=== PATIENT | female | born 1950 | race Caucasian/White ===

== ENCOUNTER 2021-02-14 11:24 | Inpatient (IN) ==
[2021-02-14] MEDS ORDERED: SODIUM CHLORIDE 0.9% 1000ML 1,000 ML IV STA (12:07)
[2021-02-14] MEDS ORDERED: ONDANSETRON INJ 2 MG/ML 2 ML VIAL IV STA (12:07)
[2021-02-14 12:15] LABS: Basophils # (auto) 0.04 K/uL (0-0.2); Basophils % (auto) 0.4 %; Eosinophils # (auto) 0.06 K/uL (0-0.5); Eosinophils % (auto) 0.6 %; Hematocrit (blood only) 42.4 % (37-47); Immature Granulocytes # (auto) 0.01 K/uL (0.00-0.02); Immature Granulocytes % (auto) 0.1 %; Lymphocytes # (auto) 1.37 K/uL (1.2-3.4); Lymphocytes % (auto) 14.3 %; Mean Corpuscular Hemoglobin 31.6 pg (25-34); Mean Corpuscular Volume 95.7 fL (80-100); Mean Platelet Volume 10.6 fL (7.4-10.4); Monocytes # (auto) 0.64 K/uL (0.11-0.59); Monocytes % (auto) 6.7 %; Neutrophils # (auto) 7.45 K/uL (1.4-6.5); Neutrophils % (auto) 77.9 %; Platelet Count 275 K/uL (130-400); RDW Coefficient of Variation 13.3 % (11.5-14.5); RDW Standard Deviation 46.6 fL (36.4-46.3); Red Blood Count 4.43 M/uL (4.2-5.4); White Blood Count 9.57 K/uL (4.8-10.8)
--- NOTE | 2021-02-14 12:26 | Emergency Department Note ---
Impression & Plan Vomiting ED Provider Note INFORMANT: Patient, nursing notes ED PROVIDER(S): Hemant Nix MD CHIEF COMPLAINT: Vomiting PLAN: Disposition: Admitted Condition: Good Outpatient prescription management: none Referral: None MEDICAL DECISION MAKING: Patient presented because of reports of vomiting. The patient is a very poor historian due to her dementia. She had work-up initiated. Her CBC and chemistry panel were unremarkable. ECG was normal. The patient underwent CT imaging of the abdomen pelvis and this was concerning for cystitis. She had dilated bowel without signs of obstruction. There was impaction present. Kidney stones were present. There were L1-L4 compression fractures. The patient denied any pain. Her urinalysis was concerning for infection. The patient was given IV Rocephin. Given the vomiting and her dementia coupled with the CT findings she will need further management in the hospital. Consultation was made with the [facility]. Patient was evaluated in the ER admitted for further management. Triage Nursing notes reviewed and agree them. Vital Signs: reviewed and remarkable for no significant abnormalities Differential diagnosis: Etiologies such as gastroenteritis, food borne illness, infections, appendicitis, diverticulitis, inflammatory bowel disease, GI bleed, biliary pathology, food bolus, as well as others were entertained. Diagnostics interpreted by me: ECG: Rate: 75 Rhythm:Normal sinus [place]:Normal QRS:Normal ST segements:No elevation or depression Other:No PACs or PVCs Cardiac Monitoring: Cardiac monitoring ordered by me: The patient was placed on continuous cardiac monitoring and observed. It revealed a normal sinus rhythm at 75 beats per minute without ectopy or evidence of dysrhythmia. Imaging studies: CT imaging as above, I refer you to the EMR for further details. HPI: The patient is a 75 year old female who presents to the Emergency Room with vomiting. The patient is a resident at [facility] and had vomiting on Friday. It then stopped and then came back again today. The patient has dementia. She is unable to provide any details to the history. Patient is denying any pain. Patient does not note feeling nauseated and has no recollection of any vomiting. History is limited secondary to her dementia and severe memory impairment. ROS: See above HPI for pertinent positives & negatives. Limited secondary to dementia PAST MEDICAL HISTORY:See Below , dementia PAST SURGICAL HISTORY:See Below, FAMILY HISTORY:See Below SOCIAL HISTORY:See Below, resides at a nursing facility HOME MEDICATIONS:See Below ALLERGIES:See Below VITALS:See Below PHYSICAL EXAMINATION: GENERAL: Awake, alert, [id number], in no distress HENT: Normocephalic, atraumatic. Oropharynx unremarkable. Mild drooling present. EYES: Normal conjunctiva. Sclera non-icteric. NECK: Inspection normal. Non-tender. Supple. No nuchal rigidity. FROM. No masses. RESPIRATORY: Clear to auscultation. No wheezes. No rales. Normal respiratory effort. CARDIAC: Normal rate. Normal rhythm. No murmurs. No rubs. Extremities warm and well perfused. Pulses equal. No JVD. GI: Soft, non-distended. No tenderness to palpation. No rebound or guarding. No masses. RECTAL: Deferred. MUSCULOSKELETAL: Atraumatic. Chest examination reveals no tenderness. The back is symmetrical on inspection without obvious abnormality. There is no CVA tenderness to palpation. No joint edema. LOWER EXTREMITIES: Calves are equal size bilaterally and non-tender. No edema. No discoloration. NEURO: Normal sensorium. No sensory or motor deficits noted. SKIN: No rash or jaundice noted. Hemant Nix MD Past Med/Surg History Medical History (Updated 02/14/21 @ 17:01 by Gloria Zavala PA-C) Breast cancer Dementia Surgical History (Updated 02/14/21 @ 16:39 by Gloria Zavala PA-C) History of breast surgery History of hysterectomy Social History Smoking Status: Unknown if ever smoked Feels Safe at Home: Yes Allergies Allergies Allergy/AdvReac Type Severity Reaction Status Date / Time pollen extracts Allergy Unknown Unverified 02/14/21 14:53 Sulfa (Sulfonamide Allergy Unknown Unverified 02/14/21 14:53 Antibiotics) wheat Allergy Unknown Unverified 02/14/21 14:53 Home Meds Home Medications Medication Instructions Recorded Confirmed B-complex with vitamin C 1 tab PO DAILY 02/14/21 02/14/21 acetaminophen 325 mg tablet 325 mg PO QID PRN 02/14/21 02/14/21 calcium carbonate 600 mg (1,500 1 tab PO DAILY 02/14/21 02/14/21 mg)-vitamin D3 200 unit tablet docusate sodium 100 mg capsule 100 mg PO BID 02/14/21 02/14/21 multivitamin (Daily-Zen) 1 tab PO DAILY 02/14/21 02/14/21 rivastigmine 1 patch TRANSDERMAL DAILY 02/14/21 02/14/21 Results & Data (ED) Vital Signs Vital Signs - 24 hr 02/14/21 11:30 02/14/21 11:37 02/14/21 14:17 Temperature 36.7 C Temperature Source Oral Pulse Rate 92 H 83 74 Pulse Rate from SpO2 Sensor 87 74 Respiratory Rate 17 18 17 Blood Pressure 131/83 131/83 134/70 Blood Pressure Mean 99 99 91 Pulse Oximetry 98 97 98 Oxygen Delivery Method Room Air Sepsis Recent Fever Within 48 Hours No Sepsis New/Unexplained Change in Mental Status No Sepsis Action Taken by Nursing No Action Required 02/14/21 14:20 02/14/21 14:30 02/14/21 15:00 Temperature Temperature Source Pulse Rate 73 98 H Pulse Rate from SpO2 Sensor 73 99 H Respiratory Rate 17 16 Blood Pressure 128/61 128/63 Blood Pressure Mean 83 84 Pulse Oximetry 97 98 100 Oxygen Delivery Method Room Air Sepsis Recent Fever Within 48 Hours Sepsis New/Unexplained Change in Mental Status Sepsis Action Taken by Nursing 02/14/21 15:31 02/14/21 16:00 02/14/21 16:30 Temperature Temperature Source Pulse Rate 93 H 107 H 79 Pulse Rate from SpO2 Sensor 96 H Respiratory Rate 15 24 14 Blood Pressure 157/74 H 146/85 H 138/66 Blood Pressure Mean 101 105 90 Pulse Oximetry 98 Oxygen Delivery Method Sepsis Recent Fever Within 48 Hours Sepsis New/Unexplained Change in Mental Status Sepsis Action Taken by Nursing Laboratory Data Result diagrams: 02/14/21 11:40 02/14/21 11:40 Lab Results 02/14/21 02/14/21 02/14/21 Range/Units 11:40 11:40 15:00 WBC 9.57 (4.8-10.8) K/uL RBC 4.43 (4.2-5.4) M/uL Hgb 14.0 (12.0-16.0) g/dL Hct 42.4 (37-47) % MCV 95.7 (80-100) fL MCH 31.6 (25-34) pg MCHC 33.0 (32-36) g/dL RDW Std Deviation 46.6 H (36.4-46.3) fL RDW Coeff of Gayle 13.3 (11.5-14.5) % Plt Count 275 (130-400) K/uL MPV 10.6 H (7.4-10.4) fL Immature Gran % (Auto) 0.1 % Neut % (Auto) 77.9 % Lymph % (Auto) 14.3 % Towns % (Auto) 6.7 % Eos % (Auto) 0.6 % Baso % (Auto) 0.4 % Neut # (Auto) 7.45 H (1.4-6.5) K/uL Lymph # (Auto) 1.37 (1.2-3.4) K/uL Towns # (Auto) 0.64 H (0.11-0.59) K/uL Eos # (Auto) 0.06 (0-0.5) K/uL Baso # (Auto) 0.04 (0-0.2) K/uL Immature Gran # (Auto) 0.01 (0.00-0.02) K/uL Sodium 139 (136-145) mmol/L Potassium 3.8 (3.5-5.1) mmol/L Chloride 106 (98-107) mmol/L Carbon Dioxide 30 (21-32) mmol/L Anion Gap 3.0 (3-11) BUN 19 H (7-18) mg/dl Creatinine 0.59 L (0.6-1.2) mg/dl Est Cr Clr Drug Dosing Not Reportable Est GFR ( Amer) 106.9 ml/min Est GFR (Non-Af Amer) 92.2 ml/min BUN/Creatinine Ratio 31.8 H (10-20) Glucose 94 (70-99) mg/dl Calcium 9.3 (8.5-10.1) mg/dl Total Bilirubin 0.3 (0.2-1) mg/dl AST 16 (15-37) U/L ALT 19 (12-78) U/L Alkaline Phosphatase 90 (45-117) U/L Troponin I < 0.015 (0-0.045) ng/ml Total Protein 7.7 (6.4-8.2) gm/dl Albumin 3.7 (3.4-5.0) gm/dl Globulin 4.0 (2.5-4.0) gm/dl Albumin/Globulin Ratio 0.9 (0.9-2) Lipase 157 (73-393) U/L Urine Color Dark Yellow Urine Appearance Turbid A (Clear) Urine pH 7.5 (4.5-7.5) Ur Specific [place] 1.016 (1.000-1.030) Urine Protein Negative (Negative) Urine Glucose (UA) Negative (Negative) Urine Ketones 1+ H (Negative) Urine Blood Negative (Negative) Urine Nitrite Negative (Negative) Urine Bilirubin Negative (Negative) Urine Urobilinogen Negative (Negative) Ur Leukocyte Esterase 2+ H (Negative) Urine WBC (Auto) 10-30 H (0-5) /hpf Urine RBC (Auto) 0-4 (0-4) /hpf U Hyaline Cast (Auto) 0 (0-5) /lpf U Epithel Cells (Auto) >30 H (0-5) /lpf Urine Bacteria (Auto) Negative (Negative) Amorphous Sediment Present A (None Prsent) COVID-19 Eval Order SARS-CoV-2 (PCR) (Negative) 02/14/21 02/14/21 Range/Units 15:45 15:45 WBC (4.8-10.8) K/uL RBC (4.2-5.4) M/uL Hgb (12.0-16.0) g/dL Hct (37-47) % MCV (80-100) fL MCH (25-34) pg MCHC (32-36) g/dL RDW Std Deviation (36.4-46.3) fL RDW Coeff of Gayle (11.5-14.5) % Plt Count (130-400) K/uL MPV (7.4-10.4) fL Immature Gran % (Auto) % Neut % (Auto) % Lymph % (Auto) % Towns % (Auto) % Eos % (Auto) % Baso % (Auto) % Neut # (Auto) (1.4-6.5) K/uL Lymph # (Auto) (1.2-3.4) K/uL Towns # (Auto) (0.11-0.59) K/uL Eos # (Auto) (0-0.5) K/uL Baso # (Auto) (0-0.2) K/uL Immature Gran # (Auto) (0.00-0.02) K/uL Sodium (136-145) mmol/L Potassium (3.5-5.1) mmol/L Chloride (98-107) mmol/L Carbon Dioxide (21-32) mmol/L Anion Gap (3-11) BUN (7-18) mg/dl Creatinine (0.6-1.2) mg/dl Est Cr Clr Drug Dosing Est GFR ( Amer) ml/min Est GFR (Non-Af Amer) ml/min BUN/Creatinine Ratio (10-20) Glucose (70-99) mg/dl Calcium (8.5-10.1) mg/dl Total Bilirubin (0.2-1) mg/dl AST (15-37) U/L ALT (12-78) U/L Alkaline Phosphatase (45-117) U/L Troponin I (0-0.045) ng/ml Total Protein (6.4-8.2) gm/dl Albumin (3.4-5.0) gm/dl Globulin (2.5-4.0) gm/dl Albumin/Globulin Ratio (0.9-2) Lipase (73-393) U/L Urine Color Urine Appearance (Clear) Urine pH (4.5-7.5) Ur Specific [place] (1.000-1.030) Urine Protein (Negative) Urine Glucose (UA) (Negative) Urine Ketones (Negative) Urine Blood (Negative) Urine Nitrite (Negative) Urine Bilirubin (Negative) Urine Urobilinogen (Negative) Ur Leukocyte Esterase (Negative) Urine WBC (Auto) (0-5) /hpf Urine RBC (Auto) (0-4) /hpf U Hyaline Cast (Auto) (0-5) /lpf U Epithel Cells (Auto) (0-5) /lpf Urine Bacteria (Auto) (Negative) Amorphous Sediment (None Prsent) COVID-19 Eval Order Covid19 at [facility] SARS-CoV-2 (PCR) NEGATIVE (Negative) Administered Medications Discontinued Medications Sodium Chloride (Nss 1000ml) 1,000 mls @ 125 mls/hr IV .Q8H STA Stop: 02/14/21 20:06 Last Infusion: 02/14/21 19:30 Dose: 0 mls/hr Documented by: [id number] Admin: 02/14/21 14:15 Dose: 125 mls/hr Documented by: [id number] Ceftriaxone Sodium (Rocephin) 2,000 mg in 70 mls @ 140 mls/hr IV NOW STA Stop: 02/14/21 16:18 Last Infusion: 02/14/21 17:47 Dose: 0 mls/hr Documented by: [id number] Admin: 02/14/21 17:11 Dose: 140 mls/hr Documented by: [id number] Ondansetron HCl (Ondansetron Inj 2 Mg/Ml 2 Ml Vial) 4 mg IV NOW STA Stop: 02/14/21 12:08 Last Admin: 02/14/21 13:02 Dose: 4 mg Documented by: [id number] Imaging Data Radiologist's Impression: Abdomen/Pelvis CT 02/14/21 12:07 CT SCAN OF THE ABDOMEN AND PELVIS WITHOUT CONTRAST CLINICAL HISTORY: vomiting COMPARISON STUDY: No previous studies for comparison. TECHNIQUE: CT scan of the abdomen and pelvis was performed from the lung bases to the proximal femurs. Images are reviewed in the axial, sagittal, and coronal planes. IV contrast was not administered for this examination. A dose lowering technique was utilized adhering to the principles of ALARA. CT DOSE: 268.09 mGy.cm FINDINGS: Lower chest: Minimal atelectasis at lung bases. Evaluation is limited due to motion artifact. Liver: The unenhanced liver is normal in size, contour, and attenuation. There is no intrahepatic biliary ductal dilatation. Gallbladder: Is not seen, probably surgically absent. Spleen: Normal in size and attenuation. Pancreas: Is atrophic. Pancreatic head and uncinate process are poorly seen. Adrenal glands: Unremarkable. Kidneys: The unenhanced kidneys are normal in size without hydronephrosis. There is no contour deforming renal mass lesion. Nonobstructive calculus are seen within bilateral renal pelvises, largest is seen on the right and measured 4 mm in size.. Bowel: Moderate hiatal hernia. Loops of small and large bowel are nondilated. Evaluation is limited due to lack of IV contrast and motion artifact as well as very little amount of intra-abdominal fat. Appendix is not well seen. Moderate amount of stool is seen within colonic loops. Rectum is dilated measuring 6.8 cm in diameter and contain large amount of stool consistent with fecal impaction. Peritoneum: There is no intraperitoneal free air or abdominal ascites. There is possible mesenteric edema within lower abdomen/pelvis however evaluation is limited due to very little amount of intra-abdominal fat. Vasculature: Abdominal aorta is normal in caliber, tortuous with minimal calcifications within its distal aspect. Adenopathy: None. Pelvic viscera: Urinary bladder is fluid-filled with mild diffuse thickening of its wall which might be seen in cystitis. Uterus is not seen, could be surgically absent. Overall evaluation of the pelvis is limited due to beam hardening artifact from metallic orthopedic hardware within right and left femur. Skeletal structures: Diffuse osteopenia. Multilevel compression fracture deformity of the L1-L4, most prominent of the L3. Retropulsion of posterior fra ctured fragments are seen at the L1-L4 level, largest is measuring 8mm at the level of L3 and better visualized on sagittal reconstruction, image 285 out of 513. IMPRESSION: 1. Fecal impaction. 2. Nondilated loops of small and large bowel. Questionable minimal mesenteric edema however evaluation is limited due to very little amount of intra-abdominal fat. 3. Bilateral cholelithiasis without cholecystitis. 4. Mild diffuse thickening of urinary bladder wall which might be seen in cystitis. Please correlate this findings with results of urinalysis. 5. Moderate hiatal hernia. 6. Multilevel compression fracture deformities of lumbar spine, most severe at L3 level. Please see discussion above. 7. The rest of findings as detailed above. ACT 112: Negative or not required by law. The above report was generated using voice recognition software. It may contain grammatical, syntax or spelling errors. Electronically signed by: Angeline Bagley DO 02/14/2021 1:34 PM Discharge Plan Visit Data Chief Complaint: Vomiting Stated Complaint: VOMITING ED Provider: Hemant Nix Discharge Problem: Vomiting Patient Disposition: Admitted As Inpatient Discharge Instructions Interventions: ED Discharge Assessment Last Done: 02/14/21 19:21
[2021-02-14 12:41] LABS: Alanine Aminotransferase 19 U/L (12-78); Albumin Level 3.7 gm/dl (3.4-5.0); Aspartate Aminotransferase 16 U/L (15-37); BUN Creatinine Ratio 31.8 (10-20); Blood Urea Nitrogen 19 mg/dl (7-18); Calcium 9.3 mg/dl (8.5-10.1); Carbon Dioxide 30 mmol/L (21-32); Chloride 106 mmol/L (98-107); Est GFR (African American) 106.9 ml/min; Est GFR (Non-African American) 92.2 ml/min; Glucose 94 mg/dl (70-99); Lipase 157 U/L (73-393); Potassium 3.8 mmol/L (3.5-5.1); Sodium 139 mmol/L (136-145)
[2021-02-14 12:46] LABS: Albumin Globulin Ratio 0.9 (0.9-2); Alkaline Phosphatase 90 U/L (45-117); Bilirubin,Total 0.3 mg/dl (0.2-1); Total Protein 7.7 gm/dl (6.4-8.2); Troponin I < 0.015 ng/ml (0-0.045)
--- NOTE | 2021-02-14 13:36 | CT Scan Report ---
CT SCAN OF THE ABDOMEN AND PELVIS WITHOUT CONTRAST CLINICAL HISTORY: vomiting COMPARISON STUDY: No previous studies for comparison. TECHNIQUE: CT scan of the abdomen and pelvis was performed from the lung bases to the proximal femurs . Images are reviewed in the axial, sagittal, and coronal planes. IV contrast was not administered fo r this examination. A dose lowering technique was utilized adhering to the principles of ALARA. CT DOSE: 268.09 mGy.cm FINDINGS: Lower chest: Minimal atelectasis at lung bases. Evaluation is limited due to motion artifact. Liver: The unenhanced liver is normal in size, contour, and attenuation. There is no intrahepatic dayne iary ductal dilatation. Gallbladder: Is not seen, probably surgically absent. Spleen: Normal in size and attenuation. Pancreas: Is atrophic. Pancreatic head and uncinate process are poorly seen. Adrenal glands: Unremarkable. Kidneys: The unenhanced kidneys are normal in size without hydronephrosis. There is no contour deform ing renal mass lesion. Nonobstructive calculus are seen within bilateral renal pelvises, largest is s een on the right and measured 4 mm in size.. Bowel: Moderate hiatal hernia. Loops of small and large bowel are nondilated. Evaluation is limited d ue to lack of IV contrast and motion artifact as well as very little amount of intra-abdominal fat. Appendix is not well seen. Moderate amount of stool is seen within colonic loops. Rectum is dilated m easuring 6.8 cm in diameter and contain large amount of stool consistent with fecal impaction. Peritoneum: There is no intraperitoneal free air or abdominal ascites. There is possible mesenteric e krys within lower abdomen/pelvis however evaluation is limited due to very little amount of intra-abd ominal fat. Vasculature: Abdominal aorta is normal in caliber, tortuous with minimal calcifications within its di stal aspect. Adenopathy: None. Pelvic viscera: Urinary bladder is fluid-filled with mild diffuse thickening of its wall which might be seen in cystitis. Uterus is not seen, could be surgically absent. Overall evaluation of the pelvis is limited due to beam hardening artifact from metallic orthopedic hardware within right and left fe mur. Skeletal structures: Diffuse osteopenia. Multilevel compression fracture deformity of the L1-L4, most prominent of the L3. Retropulsion of posterior fractured fragments are seen at the L1-L4 level, larg est is measuring 8mm at the level of L3 and better visualized on sagittal reconstruction, image 285 o ut of 513. IMPRESSION: 1. Fecal impaction. 2. Nondilated loops of small and large bowel. Questionable minimal mesenteric edema however evaluati on is limited due to very little amount of intra-abdominal fat. 3. Bilateral cholelithiasis without cholecystitis. 4. Mild diffuse thickening of urinary bladder wall which might be seen in cystitis. Please correlate this findings with results of urinalysis. 5. Moderate hiatal hernia. 6. Multilevel compression fracture deformities of lumbar spine, most severe at L3 level. Please see discussion above. 7. The rest of findings as detailed above. ACT 112: Negative or not required by law. The above report was generated using voice recognition software. It may contain grammatical, syntax o r spelling errors. Electronically signed by: Angeline Bagley DO 02/14/2021 1:34 PM
[2021-02-14 15:25] LABS: Appearance Urine Turbid (Clear); Bacteria Urine Automated Negative (Negative); Bilirubin Urine Negative (Negative); Blood Urine Negative (Negative); Color Urine Dark Yellow; Epithelial Cell Urine Auto >30 /lpf (0-5); Glucose Urine UA Negative (Negative); Ketones Urine 1+ (Negative); Leukocyte Esterase Urine 2+ (Negative); Nitrite Urine Negative (Negative); Protein Urine Negative (Negative); RBC Urine Automated 0-4 /hpf (0-4); Specific Gravity Urine 1.016 (1.000-1.030); Urobilinogen Urine Negative (Negative); pH Urine 7.5 (4.5-7.5)
[2021-02-14 15:40] LABS: Amorphous Sediment Urine Present (None Prsent)
[2021-02-14 15:41] LABS: Cast Urine Automated 0 /lpf (0-5)
[2021-02-14] MEDS ORDERED: cefTRIAXone SODIUM 2,000 MG/70 ML BAG IV STA (15:49)
--- NOTE | 2021-02-14 17:02 | History & Physical Report ---
Date of Service February 14, 2021 Assessment & Plan (1) Vomiting: Plan: Unclear etiology and very limited history on pattern of symptoms - may be related to constipation and UTI. Will treat and monitor for recurrent vomiting during admission. - PRN Zofran ordered (2) UTI (urinary tract infection): Plan: - Continue Rocephin - Await urine culture (3) Constipation: Plan: - Enema x 1 today then prn bowel regimen (4) Dementia: Plan: Unclear what baseline mental status is but per staff at [facility], pt not significantly more confused today. Attempted to reach LIBIA Jason Sherry for additional information but no answer. Fall precautions Aspiration precautions Code Status: Full code for now - per [facility], pt is not a DNR DVT Prophylaxis: SubQ kenji Zavala PA-C History of Present Illness Chief Complaint: Vomiting Primary Care Provider: Rishabh Malik This is a 71 y/o female with a PMH of dementia and breast cancer who presented to the ED from [facility] with intermittent vomiting for the past few days. History from the patient is unobtainable due to advanced dementia so history obtained from a staff member at at [facility]. She stated that the pt has been vomiting at least daily for the past 2-3 days. She does not seem to be aspirating while eating and has not been choking on food or her pills. Her appetite seems to be at baseline. They have not documented any fevers. They were unsure when pt's last BM was but did not note any documentation of constipation as a concern. They reported that family was notified of pt's transfer to the hospital today. Allergies Allergy/AdvReac Type Severity Reaction Status Date / Time pollen extracts Allergy Unknown Unverified 02/14/21 14:53 Sulfa (Sulfonamide Allergy Unknown Unverified 02/14/21 14:53 Antibiotics) wheat Allergy Unknown Unverified 02/14/21 14:53 Home Medications Medication Instructions Recorded Confirmed Type B-complex with vitamin C 1 tab PO DAILY 02/14/21 02/14/21 History acetaminophen 325 mg tablet 325 mg PO QID PRN 02/14/21 02/14/21 History calcium carbonate 600 mg (1,500 1 tab PO DAILY 02/14/21 02/14/21 History mg)-vitamin D3 200 unit tablet docusate sodium 100 mg capsule 100 mg PO BID 02/14/21 02/14/21 History multivitamin (Daily-Zen) 1 tab PO DAILY 02/14/21 02/14/21 History rivastigmine 1 patch TRANSDERMAL DAILY 02/14/21 02/14/21 History Past Med/Surg History Medical History (Updated 02/14/21 @ 17:01 by Gloria Zavala PA-C) Breast cancer Dementia Surgical History (Updated 02/14/21 @ 16:39 by Gloria Zavala PA-C) History of breast surgery History of hysterectomy Social History Smoking Status: Unknown if ever smoked Feels Safe at Home: Yes Review of Systems Review of Systems: Unobtainable due to cognitive status Physical Exam Constitutional: + thin; no acute distress Eyes: + anicteric sclerae Neck: trachea midline Respiratory: no respiratory distress and no labored breathing Auscultation: lungs clear to auscultation bilaterally; no rales, no rhonchi and no wheezes Cardiovascular: Rate/Rhythm: regular rate and regular rhythm Heart Sounds: no gallop, no murmur and no cardiac rub Vessels: radial pulses present Gastrointestinal (Abdomen): Inspection/Auscultation: normal bowel sounds; abdomen not distended Percussion/Palpation: abdomen soft; abdomen nontender Musculoskeletal: Head/Neck/Chest: normocephalic, head atraumatic and neck supple Skin: no rashes, warm and dry Neurologic: + confused (pleasantly - not oriented to place or time) Results & Data Results & Data ([facility]) Vital Signs (Past 12 Hours) Vital Signs Temp Pulse Resp BP Pulse Ox 02/14/21 11:37 36.7 C 83 18 131/83 97 Laboratory Results Laboratory Results - last 24 hr 02/14/21 02/14/21 02/14/21 11:40 11:40 15:00 WBC 9.57 RBC 4.43 Hgb 14.0 Hct 42.4 MCV 95.7 MCH 31.6 MCHC 33.0 RDW Std Deviation 46.6 H RDW Coeff of Gayle 13.3 Plt Count 275 MPV 10.6 H Immature Gran % (Auto) 0.1 Neut % (Auto) 77.9 Lymph % (Auto) 14.3 George % (Auto) 6.7 Eos % (Auto) 0.6 Baso % (Auto) 0.4 Neut # (Auto) 7.45 H Lymph # (Auto) 1.37 George # (Auto) 0.64 H Eos # (Auto) 0.06 Baso # (Auto) 0.04 Immature Gran # (Auto) 0.01 Sodium 139 Potassium 3.8 Chloride 106 Carbon Dioxide 30 Anion Gap 3.0 BUN 19 H Creatinine 0.59 L Est Cr Clr Drug Dosing Not Reportable Est GFR ( Amer) 106.9 Est GFR (Non-Af Amer) 92.2 BUN/Creatinine Ratio 31.8 H Glucose 94 Calcium 9.3 Total Bilirubin 0.3 AST 16 ALT 19 Alkaline Phosphatase 90 Troponin I < 0.015 Total Protein 7.7 Albumin 3.7 Globulin 4.0 Albumin/Globulin Ratio 0.9 Lipase 157 Urine Color Dark Yellow Urine Appearance Turbid A Urine pH 7.5 Ur Specific [place] 1.016 Urine Protein Negative Urine Glucose (UA) Negative Urine Ketones 1+ H Urine Blood Negative Urine Nitrite Negative Urine Bilirubin Negative Urine Urobilinogen Negative Ur Leukocyte Esterase 2+ H Urine WBC (Auto) 10-30 H Urine RBC (Auto) 0-4 U Hyaline Cast (Auto) 0 U Epithel Cells (Auto) >30 H Urine Bacteria (Auto) Negative Amorphous Sediment Present A COVID-19 Eval Order SARS-CoV-2 (PCR) 02/14/21 02/14/21 15:45 15:45 WBC RBC Hgb Hct MCV MCH MCHC RDW Std Deviation RDW Coeff of Gayle Plt Count MPV Immature Gran % (Auto) Neut % (Auto) Lymph % (Auto) George % (Auto) Eos % (Auto) Baso % (Auto) Neut # (Auto) Lymph # (Auto) George # (Auto) Eos # (Auto) Baso # (Auto) Immature Gran # (Auto) Sodium Potassium Chloride Carbon Dioxide Anion Gap BUN Creatinine Est Cr Clr Drug Dosing Est GFR ( Amer) Est GFR (Non-Af Amer) BUN/Creatinine Ratio Glucose Calcium Total Bilirubin AST ALT Alkaline Phosphatase Troponin I Total Protein Albumin Globulin Albumin/Globulin Ratio Lipase Urine Color Urine Appearance Urine pH Ur Specific [place] Urine Protein Urine Glucose (UA) Urine Ketones Urine Blood Urine Nitrite Urine Bilirubin Urine Urobilinogen Ur Leukocyte Esterase Urine WBC (Auto) Urine RBC (Auto) U Hyaline Cast (Auto) U Epithel Cells (Auto) Urine Bacteria (Auto) Amorphous Sediment COVID-19 Eval Order Covid19 at [facility] SARS-CoV-2 (PCR) Pending Diagnostic Findings CT Abd/Pel 02/14/21 - IMPRESSION: 1. Fecal impaction. 2. Nondilated loops of small and large bowel. Questionable minimal mesenteric edema however evaluation is limited due to very little amount of intra-abdominal fat. 3. Bilateral nonobstructive nephrolithiasis. 4. Mild diffuse thickening of urinary bladder wall which might be seen in cystitis. Please correlate this findings with results of urinalysis. 5. Moderate hiatal hernia. 6. Multilevel compression fracture deformities of lumbar spine, most severe at L3 level. Please see discussion above. 7. The rest of findings as detailed above. Medications Administered Sodium Chloride (Nss 1000ml) 1,000 mls @ 125 mls/hr IV .Q8H STA Stop: 02/14/21 20:06 Last Admin: 02/14/21 14:15 Dose: 125 mls/hr Documented by: [id number] Discontinued Medications Ondansetron HCl (Ondansetron Inj 2 Mg/Ml 2 Ml Vial) 4 mg IV NOW STA Stop: 02/14/21 12:08 Last Admin: 02/14/21 13:02 Dose: 4 mg Documented by: [id number] Supervising Physician Co-Signing Physician Notes I saw this patient with the physician fish hatchery assistant, I participated in the history, physical, review of systems, and physical exam. I reviewed the medications with the patient and the physician fish hatchery assistant and helped reconcile the medications. I helped take a detailed family and social history as well. I formulated the assessment and plan personally with the physician fish hatchery assistant and went over it with the patient. ROS-Offers no reliable history Physical Exam Gen-AAO x 1, NAD, Afebrile Head-NCAT, EOMI, PERRLA, Anicteric Sclera, No Posterior Pharyngeal Erythema Neck-Supple, No JVD, No Thyromegaly, No Masses, No LAD, No Bruits Lungs-Clear to Auscultation Bilaterally, No Rales, No Rhonchi, No Wheezing, No Crepitus Chest-No S4, +S1, +S2, No S3, No Murmurs, No Rubs, No Gallops, No Ectopy Abdomen-Soft, Bowel Sounds Present, Non Tender, Non Distended, No Hepatomegaly, No Splenomegaly, No Palpable Masses, No Rebound, No Rigidity, No Guarding Musculoskeletal-Full Range of Motion Bilaterally, No CVAT Extremities-No Cyanosis, No Clubbing, No Edema Nuero-Cranial Nerves II-XII grossly intact, Motor WNL, DTRs WNL, Strength WNL, Non Focal Psych-Demented
[2021-02-14] MEDS ORDERED: SOD PHOSPHATE/SOD BIPHOSPHATE ENEMA 132 ML BTL PR ONE ×2 (17:12→21:36)
--- NOTE | 2021-02-14 17:55 | Electrocardiogram Report ---
Test Reason : Blood Pressure : / mmHG Vent. Rate : 075 BPM Atrial Rate : 075 BPM P-R Int : 134 ms QRS Dur : 094 ms QT Int : 394 ms P-R-T Axes : 073 039 071 degrees QTc Int : 439 ms Normal sinus rhythm Normal ECG No previous ECGs available Confirmed by Gerald Garnica ([id number]) on 02/14/2021 5:55:19 PM Referred By: REFERRED SELF Confirmed By:Gerald Garnica
[2021-02-14] MEDS ORDERED: POLYETHYLENE (MIRALAX) 17 GM PACK PO PRN (19:35)
[2021-02-14] MEDS ORDERED: ONDANSETRON INJ 2 MG/ML 2 ML VIAL IV PRN (19:35)
[2021-02-14] MEDS: DOCUSATE SODIUM 100 MG CAP PO SCH (23:28)
[2021-02-14] MEDS: HEPARIN SOD 5,000 UNIT/0.5 ML VIAL SQ SCH (23:28)
[2021-02-15 08:06] LABS: Basophils # (auto) 0.02 K/uL (0-0.2); Basophils % (auto) 0.3 %; Eosinophils # (auto) 0.12 K/uL (0-0.5); Eosinophils % (auto) 1.5 %; Hematocrit (blood only) 40.9 % (37-47); Hemoglobin 13.3 g/dL (12.0-16.0); Immature Granulocytes # (auto) 0.01 K/uL (0.00-0.02); Immature Granulocytes % (auto) 0.1 %; Lymphocytes # (auto) 1.51 K/uL (1.2-3.4); Lymphocytes % (auto) 19.4 %; Mean Corpuscular Hgb Conc 32.5 g/dL (32-36); Mean Corpuscular Volume 95.3 fL (80-100); Mean Platelet Volume 10.4 fL (7.4-10.4); Monocytes # (auto) 0.58 K/uL (0.11-0.59); Monocytes % (auto) 7.4 %; Neutrophils # (auto) 5.55 K/uL (1.4-6.5); Neutrophils % (auto) 71.3 %; Platelet Count 254 K/uL (130-400); RDW Coefficient of Variation 13.4 % (11.5-14.5); RDW Standard Deviation 46.8 fL (36.4-46.3); Red Blood Count 4.29 M/uL (4.2-5.4); White Blood Count 7.79 K/uL (4.8-10.8)
[2021-02-15] MEDS: HEPARIN SOD 5,000 UNIT/0.5 ML VIAL SQ SCH ×2 (08:44→21:13)
[2021-02-15] MEDS: DOCUSATE SODIUM 100 MG CAP PO SCH ×2 (08:44→21:13)
[2021-02-15 08:49] LABS: BUN Creatinine Ratio 34.4 (10-20); Blood Urea Nitrogen 15 mg/dl (7-18); Calcium 8.8 mg/dl (8.5-10.1); Carbon Dioxide 28 mmol/L (21-32); Chloride 105 mmol/L (98-107); Est GFR (African American) 118.6 ml/min; Est GFR (Non-African American) 102.3 ml/min; Glucose 83 mg/dl (70-99); Potassium 3.8 mmol/L (3.5-5.1); Sodium 139 mmol/L (136-145)
[2021-02-15] MEDS: cefTRIAXone SODIUM 1,000 MG in DEXTROSE 5% 50 ML IV SCH (17:25)
--- NOTE | 2021-02-16 00:28 | Hospitalist Progress Note ---
Date of Service February 15, 2021 Assessment & Plan (1) Vomiting: Plan: CT abd/pelvis showed Fecal impaction. Nondilated loops of small and large bowel. Questionable minimal mesenteric edema however evaluation is limited due to very little amount of intra-abdominal fat. Tolerated full liquid diet Continue IV antiemetic and stool softener Will advance diet as tolerated Clinically improves (2) UTI (urinary tract infection): Plan: UA positive for Leukocytes CT abd/pelvis showed Mild diffuse thickening of urinary bladder wall which might be seen in cystitis. Currently on IV Rocephin Urine cx pending Continue IV abx for now (3) Constipation: Plan: CT abd/pelvis showed stool impaction Enema x 1 given Continue Stool softener and laxative (4) Dementia: Plan: Unclear what baseline mental status is but per staff at [facility], pt not significantly more confused today. Attempted to reach LIBIA Powell for additional information but no answer. Fall precautions Aspiration precautions Code Status: Full code DVT Prophylaxis: SubQ heparin Admission and Anticipated Discharge Date Admission Date: February 14, 2021 Subjective Pt was seen and examined Lying in bed with no distress Pt tolerated full liquid diet then diet advanced to soft She vomited with the soft diet She does not talk much She said that she feels fine Denies any chest pain, palpitation, dizziness and SOB Physical Exam Physical Exam: General- No acute distress Head- atraumatic Eyes- PERRL, EOMI, ENT- oropharynx clear Neck- supple, no JVD Lungs- clear to auscultation Heart- regular rhythm; no murmur Abdomen- normal bowel sounds, soft, nontender Extremities- no calf tenderness Neuro- alert, oriented x 3; PERRL, EOMI; no facial palsy; no dysarthria Skin- warm & dry Results & Data Results & Data ([facility]) Vital Signs (Past 12 Hours) Vital Signs Temp Pulse Resp BP Pulse Ox 02/15/21 22:55 37 C 76 14 114/70 98 02/15/21 15:19 37.0 C 87 16 115/69 96
[2021-02-16] MEDS: HEPARIN SOD 5,000 UNIT/0.5 ML VIAL SQ SCH ×2 (09:03→21:40)
[2021-02-16] MEDS: DOCUSATE SODIUM 100 MG CAP PO SCH ×2 (09:03→21:40)
[2021-02-16] MEDS: cefTRIAXone SODIUM 1,000 MG in DEXTROSE 5% 50 ML IV SCH (17:44)
--- NOTE | 2021-02-16 19:39 | Hospitalist Progress Note ---
Date of Service February 16, 2021 Assessment & Plan (1) Vomiting: Plan: CT abd/pelvis showed Fecal impaction. Nondilated loops of small and large bowel. Questionable minimal mesenteric edema however evaluation is limited due to very little amount of intra-abdominal fat. Tolerated full liquid diet, diet advanced to low fiber Continue IV antiemetic and stool softener Clinically improves Ok to discharge if tolerated low fiber diet (2) UTI (urinary tract infection): UA positive for Leukocytes CT abd/pelvis showed Mild diffuse thickening of urinary bladder wall which might be seen in cystitis. Urine cx showed no growth Will complete 3 days course of abx since she was starting on Rocephin on admission Will d/c abx after today dose (3) Constipation: CT abd/pelvis showed stool impaction Enema x 1 given Continue Stool softener and laxative (4) Dementia: Plan: Unclear what baseline mental status is but per staff at [facility], pt not significantly more confused today. Attempted to reach Shira Powell for additional information but no answer. Fall precautions Aspiration precautions Code Status: Full code DVT Prophylaxis: SubQ heparin Disposition Will discharge home in am Admission and Anticipated Discharge Date Admission Date: February 14, 2021 Subjective Pt was seen and examined Lying in bed with no distress Tolerated full liquid diet, then advanced to low fiber diet No episode of vomiting today Denies any chest pain, palpitation, dizziness and SOB Physical Exam Physical Exam: General- No acute distress Head- atraumatic Eyes- PERRL, EOMI, ENT- oropharynx clear Neck- supple, no JVD Lungs- clear to auscultation Heart- regular rhythm; no murmur Abdomen- normal bowel sounds, soft, nontender Extremities- no calf tenderness Neuro- alert, oriented x 3; PERRL, EOMI; no facial palsy; no dysarthria Skin- warm & dry Results & Data Results & Data ([facility]) Vital Signs (Past 12 Hours) Vital Signs Temp Pulse Resp BP Pulse Ox 02/16/21 17:47 36.8 C 84 18 125/72 94
[2021-02-17] MEDS: DOCUSATE SODIUM 100 MG CAP PO SCH (08:22)
[2021-02-17] MEDS: HEPARIN SOD 5,000 UNIT/0.5 ML VIAL SQ SCH (08:22)
--- NOTE | 2021-02-17 16:43 | Discharge Summary ---
Date of Service February 17, 2021 Admission HPI Per Admitting Provider This is a 71 y/o female with a PMH of dementia and breast cancer who presented to the ED from [facility] with intermittent vomiting for the past few days. History from the patient is unobtainable due to advanced dementia so history obtained from a staff member at at [facility]. She stated that the pt has been vomiting at least daily for the past 2-3 days. She does not seem to be aspirating while eating and has not been choking on food or her pills. Her appetite seems to be at baseline. They have not documented any fevers. They were unsure when pt's last BM was but did not note any documentation of constipation as a concern. They reported that family was notified of pt's transfer to the hospital today. Admission Exam Per Admitting Provider Constitutional: + thin; no acute distress Eyes: + anicteric sclerae Neck: trachea midline Respiratory: no respiratory distress and no labored breathing Auscultation: lungs clear to auscultation bilaterally; no rales, no rhonchi and no wheezes Cardiovascular: regular rate and regular rhythm Heart Sounds: no gallop, no murmur and no cardiac rub Vessels: radial pulses present Gastrointestinal:Inspection/Auscultation: normal bowel sounds; abdomen not distended Percussion/Palpation: abdomen soft; abdomen nontender Musculoskeletal: Head/Neck/Chest: normocephalic, head atraumatic and neck supple Skin: no rashes, warm and dry Neurologic: + confused (pleasantly - not oriented to place or time) Principal Diagnosis Vomiting: Constipation: Dementia: Discharge Exam General- No acute distress Head- atraumatic Eyes- PERRL, EOMI, ENT- oropharynx clear Neck- supple, no JVD Lungs- clear to auscultation Heart- regular rhythm; no murmur Abdomen- normal bowel sounds, soft, nontender Extremities- no calf tenderness Neuro- alert, oriented x 3; PERRL, EOMI; no facial palsy; no dysarthria Skin- warm & dry Discharge Data Allergies Allergy/AdvReac Type Severity Reaction Status Date / Time pollen extracts Allergy Unknown Unverified 02/20/21 14:14 Sulfa (Sulfonamide Allergy Unknown Unverified 02/20/21 14:14 Antibiotics) wheat Allergy Unknown Unverified 02/20/21 14:14 Consultations 02/14/21 16:04 ED Decision to Admit Stat Ordered Studies 02/14/21 12:07 CT abd pelvis wo con Stat ADDENDUM ADDENDUM: #3 of impression was dictated incorrectly. Correct dictation: IMPRESSION: 1. Fecal impaction. 2. Nondilated loops of small and large bowel. Questionable minimal mesenteric edema however evaluation is limited due to very little amount of intra-abdominal fat. 3. Bilateral nonobstructive nephrolithiasis. 4. Mild diffuse thickening of urinary bladder wall which might be seen in cystitis. Please correlate this findings with results of urinalysis. 5. Moderate hiatal hernia. 6. Multilevel compression fracture deformities of lumbar spine, most severe at L3 level. Please see discussion above. 7. The rest of findings as detailed above. Electronically signed by: Angeline Bagley DO 02/14/2021 2:[address] SCAN OF THE ABDOMEN AND PELVIS WITHOUT CONTRAST CLINICAL HISTORY: vomiting COMPARISON STUDY: No previous studies for comparison. TECHNIQUE: CT scan of the abdomen and pelvis was performed from the lung bases to the proximal femurs. Images are reviewed in the axial, sagittal, and coronal planes. IV contrast was not administered for this examination. A dose lowering technique was utilized adhering to the principles of ALARA. CT DOSE: 268.09 mGy.cm FINDINGS: Lower chest: Minimal atelectasis at lung bases. Evaluation is limited due to motion artifact. Liver: The unenhanced liver is normal in size, contour, and attenuation. There is no intrahepatic biliary ductal dilatation. Gallbladder: Is not seen, probably surgically absent. Spleen: Normal in size and attenuation. Pancreas: Is atrophic. Pancreatic head and uncinate process are poorly seen. Adrenal glands: Unremarkable. Kidneys: The unenhanced kidneys are normal in size without hydronephrosis. There is no contour deforming renal mass lesion. Nonobstructive calculus are seen within bilateral renal pelvises, largest is seen on the right and measured 4 mm in size.. Bowel: Moderate hiatal hernia. Loops of small and large bowel are nondilated. Evaluation is limited due to lack of IV contrast and motion artifact as well as very little amount of intra-abdominal fat. Appendix is not well seen. Moderate amount of stool is seen within colonic loops. Rectum is dilated measuring 6.8 cm in diameter and contain large amount of stool consistent with fecal impaction. Peritoneum: There is no intraperitoneal free air or abdominal ascites. There is possible mesenteric edema within lower abdomen/pelvis however evaluation is limited due to very little amount of intra-abdominal fat. Vasculature: Abdominal aorta is normal in caliber, tortuous with minimal calcifications within its distal aspect. Adenopathy: None. Pelvic viscera: Urinary bladder is fluid-filled with mild diffuse thickening of its wall which might be seen in cystitis. Uterus is not seen, could be surgically absent. Overall evaluation of the pelvis is limited due to beam hardening artifact from metallic orthopedic hardware within right and left femur. Skeletal structures: Diffuse osteopenia. Multilevel compression fracture deformity of the L1-L4, most prominent of the L3. Retropulsion of posterior fractured fragments are seen at the L1-L4 level, largest is measuring 8mm at the level of L3 and better visualized on sagittal reconstruction, image 285 out of 513. IMPRESSION: 1. Fecal impaction. 2. Nondilated loops of small and large bowel. Questionable minimal mesenteric edema however evaluation is limited due to very little amount of intra-abdominal fat. 3. Bilateral cholelithiasis without cholecystitis. 4. Mild diffuse thickening of urinary bladder wall which might be seen in cystitis. Please correlate this findings with results of urinalysis. 5. Moderate hiatal hernia. 6. Multilevel compression fracture deformities of lumbar spine, most severe at L3 level. Please see discussion above. 7. The rest of findings as detailed above. ACT 112: Negative or not required by law. The above report was generated using voice recognition software. It may contain grammatical, syntax or spelling errors. Electronically signed by: Angeline Bagley DO 02/14/2021 1:34 PM Dictated: 02/14/21 1318Transcribed: 02/14/21 1318 Hospital Course (1) Vomiting: CT abd/pelvis showed Fecal impaction. Nondilated loops of small and large bowel. Questionable minimal mesenteric edema however evaluation is limited due to very little amount of intra-abdominal fat. Tolerated full liquid diet, diet advanced to low fiber Continue IV antiemetic and stool softener Clinically improves Ok to discharge if tolerated low fiber diet (2) UTI (urinary tract infection): UA positive for Leukocytes CT abd/pelvis showed Mild diffuse thickening of urinary bladder wall which might be seen in cystitis. Urine cx showed no growth Will complete 3 days course of abx since she was starting on Rocephin on admission Will d/c abx after today dose (3) Constipation: CT abd/pelvis showed stool impaction Enema x 1 given Continue Stool softener and laxative (4) Dementia: Plan: Unclear what baseline mental status is but per staff at [facility], pt not significantly more confused today. Attempted to reach LIBIA Powell for additional information but no answer. Fall precautions Aspiration precautions Code Status: Full code DVT Prophylaxis: SubQ heparin Disposition Will discharge home in am Total Time Total Time Spent Total Time Spent (In Minutes): 35 minutes Discharge Plan Discharge Items Patient Disposition: Personal Skilled Nursing Reason For Visit: UTI, CONSTIPATION, VOMITING Discharge Diagnosis: Vomiting: Constipation: Dementia: Activity: Resume your previous activity Non-emergency contact: Primary Care Provider Call non-emergency contact if: you have any medication questions Follow-up/Referrals: Rishabh Malik D.O. [Primary Care Provider] - Diet: Low Fiber Diet Texture: Easy to Chew Addtl Attending Provider Instructions: Follow up with your primary care provider within 1 week Fall precaution Advanced diet slowly as tolerated Please seek medical attention if symptoms reoccur. Pending Studies at Discharge: No Stand-Alone Forms: My [employer], Smoking Cessation Skilled Items Patient informed of condition?: Yes DNR: No Discharge Level of Care: Other Communicable Disease: No Discharge Prognosis: Stable Lines: None Urinary Catheter: No Medications and DC Order Prescriptions: New polyethylene glycol 3350 [Miralax] 17 gram Powder In Packet 17 g PO DAILY PRN (Reason: constipation) Qty: 30 RF: 0 Continued rivastigmine 9.5 mg/24 hour patch 24 hour 1 patch transdermal DAILY RF: 0 acetaminophen 325 mg Tablet 325 mg PO QID PRN (Reason: Pain) RF: 0 calcium carbonate-vitamin D3 600 mg(1,500mg) -200 unit Tablet 2 tab PO DAILY RF: 0 docusate sodium 100 mg Capsule 100 mg PO BID RF: 0 B-complex with vitamin C Tablet 1 tab PO DAILY RF: 0 multivitamin [Daily-Zen] Tablet 1 tab PO DAILY RF: 0 Discharge Orders: Discharge Order (Routine); Ordered 02/17/21 Ordered By: Endy Poon Admission Data Admit Date/Time: 02/14/21 17:10 Attending Provider: Endy Poon Admit Provider: Ignacio Banegas Primary Care Provider: Rishabh Malik Other Providers: Ladan Lieberman Other Interventions: Discharge Summary Assessment (RN) Last Done: 02/17/21 16:54
== END 2021-02-17 17:35 | disposition home or self-care (01) | DRG 690 ==
LOC: ED 11:24 → SUATTDRO 17:10 → 3N 17:10

== ENCOUNTER 2021-02-20 12:48 | Inpatient (IN) ==
--- NOTE | 2021-02-20 13:40 | Emergency Department Note ---
History of Present Illness General Chief complaint: Fall Stated complaint: FALL, BRUISING TO LOPEZ BUISING, HIP PAIN Time Seen by Provider: 02/20/21 13:30 History of Present Illness This is a 71-year-old female presenting to the emergency department from [facility] for evaluation after a mechanical fall. The event occurred roughly 1 hour prior to arrival and was witnessed by staff. The patient is with dementia and answers almost all questions "yes". The patient did report some discomfort to the right side head, right arm, and left hip. The patient was admitted to this facility less than 1 week ago for a few days after having vomiting and constipation. Review of the hospital notes are unclear whether or not she had a bowel movement while here in the hospital, and by history she is not able to tell me if this has occurred. History is limited because of the patient's chronic dementia. Home Medications Medication Instructions Recorded Confirmed Type B-complex with vitamin C 1 tab PO DAILY 02/14/21 02/20/21 History acetaminophen 325 mg tablet 325 mg PO QID PRN 02/14/21 02/20/21 History calcium carbonate 600 mg (1,500 2 tab PO DAILY 02/14/21 02/20/21 History mg)-vitamin D3 200 unit tablet docusate sodium 100 mg capsule 100 mg PO BID 02/14/21 02/20/21 History multivitamin (Daily-Zen) 1 tab PO DAILY 02/14/21 02/20/21 History rivastigmine 1 patch TRANSDERMAL DAILY 02/14/21 02/20/21 History polyethylene glycol 3350 17 gram 17 g PO DAILY PRN #30 ea 02/17/21 02/20/21 Rx oral powder packet (Miralax) Allergies Allergy/AdvReac Type Severity Reaction Status Date / Time pollen extracts Allergy Unknown Unverified 02/20/21 14:14 Sulfa (Sulfonamide Allergy Unknown Unverified 02/20/21 14:14 Antibiotics) wheat Allergy Unknown Unverified 02/20/21 14:14 Past Med/Surg History Medical History Breast cancer Dementia Vomiting Surgical History History of breast surgery History of hysterectomy Family History Other Family history unobtainable due to patient's condition Social History Smoking Status: Unknown if ever smoked Preferred Language: Colombian Communication Ability: Effective Center Machine Operator Required: No Current Living Situation: Personal Care Facility Current Living Situation Comment: [facility] Feels Safe at Home: Yes Assistive Devices: Glasses Review of Systems Unobtainable due to cognitive status Physical Exam Vital Signs Vital Signs - 24 hr 02/20/21 12:54 02/20/21 14:45 02/20/21 16:40 Temperature 37 C Temperature Source Oral Pulse Rate - Lying Pulse Rate - Sitting Pulse Rate 75 Pulse Rate [Left Finger] 76 67 Pulse Rhythm Regular Pulse Strength Normal Respiratory Rate 20 20 20 Respiratory Effort / Characteristics Non-Labored Spontaneous Respiratory Depth Normal Respiratory Pattern Regular Blood Pressure - Lying Blood Pressure - Sitting Blood Pressure 143/67 H Blood Pressure [Left Arm] 134/76 133/67 Blood Pressure Mean 92 Blood Pressure Mean [Left Arm] 95 89 Blood Pressure Position Sitting Blood Pressure Position [Left Arm] Sitting Pulse Oximetry 99 98 98 Oxygen Delivery Method Room Air Sepsis Recent Fever Within 48 Hours No Sepsis New/Unexplained Change in Mental Status No Sepsis Action Taken by Nursing No Action Required 02/20/21 18:43 02/20/21 19:11 02/20/21 20:26 Temperature Temperature Source Pulse Rate - Lying 72 Pulse Rate - Sitting 70 Pulse Rate Pulse Rate [Left Finger] 93 H 83 Pulse Rhythm Pulse Strength Respiratory Rate 20 20 Respiratory Effort / Characteristics Respiratory Depth Respiratory Pattern Blood Pressure - Lying 129/60 Blood Pressure - Sitting 137/63 Blood Pressure Blood Pressure [Left Arm] 136/68 131/62 Blood Pressure Mean Blood Pressure Mean [Left Arm] 90 85 Blood Pressure Position Blood Pressure Position [Left Arm] Pulse Oximetry 98 97 Oxygen Delivery Method Room Air Sepsis Recent Fever Within 48 Hours Sepsis New/Unexplained Change in Mental Status Sepsis Action Taken by Nursing 02/20/21 21:33 Temperature Temperature Source Pulse Rate - Lying Pulse Rate - Sitting Pulse Rate Pulse Rate [Left Finger] 94 H Pulse Rhythm Pulse Strength Respiratory Rate 20 Respiratory Effort / Characteristics Respiratory Depth Respiratory Pattern Blood Pressure - Lying Blood Pressure - Sitting Blood Pressure Blood Pressure [Left Arm] 126/70 Blood Pressure Mean Blood Pressure Mean [Left Arm] 88 Blood Pressure Position Blood Pressure Position [Left Arm] Pulse Oximetry 99 Oxygen Delivery Method Room Air Sepsis Recent Fever Within 48 Hours Sepsis New/Unexplained Change in Mental Status Sepsis Action Taken by Nursing VITALS: Vitals are noted on the nurse's note and reviewed by myself. Vital signs stable. GENERAL: Pleasantly demented white female who is cooperative and answers all questions "yes" HEAD: Normocephalic atraumatic. NECK: Supple without nuchal rigidity. No lymphadenopathy. No thyromegaly. Cervical spine is nontender. HEART: Regular rate and rhythm without murmurs gallops or rubs. LUNGS: Clear to auscultation bilaterally without wheezes, rales or rhonchi. No retractions or accessory muscle use. ABDOMEN: Positive normal bowel sounds x 4. Soft, nontender, without masses or organomegaly. No guarding or rebound tenderness. MUSCULOSKELETAL: No muscle atrophy, erythema, or edema noted. SKIN: The skin was with mild right arm edema consistent with contusion Course Administered Medications Sodium Chloride (Nss 1000ml) 1,000 mls @ 80 mls/hr IV .[id number] [facility] Stop: 02/21/21 06:29 Last Admin: 02/20/21 19:13 Dose: 80 mls/hr Documented by: [id number] Polyethylene Glycol (Polyethylene (Miralax) 17 Gm Pack) 17 gm PO DAILY [facility] Stop: 03/22/21 17:39 Last Admin: 02/20/21 19:14 Dose: Not Given Documented by: [id number] Medical Decision Making Differential Diagnosis Differential diagnosis includes, but is not limited to: Sprain, strain, fracture, dislocation, subluxation, contusion, and others Laboratory Data Result diagrams: 02/20/21 18:05 02/20/21 18:05 Lab Results 02/20/21 02/20/21 02/20/21 Range/Units 18:05 18:05 18:05 WBC 13.11 H (4.8-10.8) K/uL RBC 4.42 (4.2-5.4) M/uL Hgb 14.0 (12.0-16.0) g/dL Hct 42.7 (37-47) % MCV 96.6 (80-100) fL MCH 31.7 (25-34) pg MCHC 32.8 (32-36) g/dL RDW Std Deviation 47.2 H (36.4-46.3) fL RDW Coeff of Gayle 13.3 (11.5-14.5) % Plt Count 277 (130-400) K/uL MPV 10.3 (7.4-10.4) fL Immature Gran % (Auto) 0.2 % Neut % (Auto) 83.5 % Lymph % (Auto) 9.9 % [place] % (Auto) 5.9 % Eos % (Auto) 0.3 % Baso % (Auto) 0.2 % Neut # (Auto) 10.95 H (1.4-6.5) K/uL Lymph # (Auto) 1.30 (1.2-3.4) K/uL [place] # (Auto) 0.77 H (0.11-0.59) K/uL Eos # (Auto) 0.04 (0-0.5) K/uL Baso # (Auto) 0.02 (0-0.2) K/uL Immature Gran # (Auto) 0.03 H (0.00-0.02) K/uL Sodium 141 (136-145) mmol/L Potassium 4.2 (3.5-5.1) mmol/L Chloride 107 (98-107) mmol/L Carbon Dioxide 30 (21-32) mmol/L Anion Gap 3.0 (3-11) BUN 16 (7-18) mg/dl Creatinine 0.52 L (0.6-1.2) mg/dl Est Cr Clr Drug Dosing 66.7 ml/min Est GFR ( Amer) 111.4 ml/min Est GFR (Non-Af Amer) 96.1 ml/min BUN/Creatinine Ratio 30.1 H (10-20) Glucose 113 H (70-99) mg/dl Calcium 9.4 (8.5-10.1) mg/dl Magnesium 2.4 (1.8-2.4) mg/dl Total Bilirubin 0.2 (0.2-1) mg/dl AST 18 (15-37) U/L ALT 23 (12-78) U/L Alkaline Phosphatase 99 (45-117) U/L Total Protein 8.0 (6.4-8.2) gm/dl Albumin 4.0 (3.4-5.0) gm/dl Globulin 4.0 (2.5-4.0) gm/dl Albumin/Globulin Ratio 1.0 (0.9-2) Procalcitonin (0-0.5) ng/ml Urine Color Urine Appearance (Clear) Urine pH (4.5-7.5) Ur Specific [place] (1.000-1.030) Urine Protein (Negative) Urine Glucose (UA) (Negative) Urine Ketones (Negative) Urine Blood (Negative) Urine Nitrite (Negative) Urine Bilirubin (Negative) Urine Urobilinogen (Negative) Ur Leukocyte Esterase (Negative) Urine WBC (Auto) (0-5) /hpf Urine RBC (Auto) (0-4) /hpf U Hyaline Cast (Auto) (0-5) /lpf U Epithel Cells (Auto) (0-5) /lpf Urine Bacteria (Auto) (Negative) COVID-19 Eval Order Covid19 at [facility] SARS-CoV-2 (PCR) (Negative) 02/20/21 02/20/21 02/20/21 Range/Units 18:05 20:00 21:21 WBC (4.8-10.8) K/uL RBC (4.2-5.4) M/uL Hgb (12.0-16.0) g/dL Hct (37-47) % MCV (80-100) fL MCH (25-34) pg MCHC (32-36) g/dL RDW Std Deviation (36.4-46.3) fL RDW Coeff of Gayle (11.5-14.5) % Plt Count (130-400) K/uL MPV (7.4-10.4) fL Immature Gran % (Auto) % Neut % (Auto) % Lymph % (Auto) % [place] % (Auto) % Eos % (Auto) % Baso % (Auto) % Neut # (Auto) (1.4-6.5) K/uL Lymph # (Auto) (1.2-3.4) K/uL [place] # (Auto) (0.11-0.59) K/uL Eos # (Auto) (0-0.5) K/uL Baso # (Auto) (0-0.2) K/uL Immature Gran # (Auto) (0.00-0.02) K/uL Sodium (136-145) mmol/L Potassium (3.5-5.1) mmol/L Chloride (98-107) mmol/L Carbon Dioxide (21-32) mmol/L Anion Gap (3-11) BUN (7-18) mg/dl Creatinine (0.6-1.2) mg/dl Est Cr Clr Drug Dosing ml/min Est GFR ( Amer) ml/min Est GFR (Non-Af Amer) ml/min BUN/Creatinine Ratio (10-20) Glucose (70-99) mg/dl Calcium (8.5-10.1) mg/dl Magnesium (1.8-2.4) mg/dl Total Bilirubin (0.2-1) mg/dl AST (15-37) U/L ALT (12-78) U/L Alkaline Phosphatase (45-117) U/L Total Protein (6.4-8.2) gm/dl Albumin (3.4-5.0) gm/dl Globulin (2.5-4.0) gm/dl Albumin/Globulin Ratio (0.9-2) Procalcitonin < 0.05 (0-0.5) ng/ml Urine Color Dark Yellow Urine Appearance Clear (Clear) Urine pH 6.0 (4.5-7.5) Ur Specific [place] 1.019 (1.000-1.030) Urine Protein Negative (Negative) Urine Glucose (UA) Negative (Negative) Urine Ketones Trace H (Negative) Urine Blood Negative (Negative) Urine Nitrite Negative (Negative) Urine Bilirubin Negative (Negative) Urine Urobilinogen Negative (Negative) Ur Leukocyte Esterase 1+ H (Negative) Urine WBC (Auto) 5-10 H (0-5) /hpf Urine RBC (Auto) 0-4 (0-4) /hpf U Hyaline Cast (Auto) 1-5 (0-5) /lpf U Epithel Cells (Auto) 10-20 H (0-5) /lpf Urine Bacteria (Auto) Negative (Negative) COVID-19 Eval Order SARS-CoV-2 (PCR) NEGATIVE (Negative) Imaging Data Radiologist's Impression: Abdomen/Pelvis CT 02/20/21 13:36 CT OF THE ABDOMEN AND PELVIS WITHOUT CONTRAST CLINICAL HISTORY: Fall. Constipation. L hip pain. COMPARISON STUDY: CT of the abdomen and pelvis February 14, 2021. TECHNIQUE: Axial images of the abdomen and pelvis were obtained without IV contrast. Images were reviewed in the axial, sagittal, and coronal planes. Automated exposure control was utilized for the study. A dose lowering technique was utilized adhering to the principles of ALARA. FINDINGS: Cardiomegaly is noted. This exam is compromised given the lack of intravenous contrast. No pneumatosis, free air or portal venous gas is present. Unenhanced images of the liver, spleen, adrenal glands, kidneys and pancreas are unremarkable with exception of several small bilateral renal calculi. There is no ureteral calculi. No hydronephrosis. A large amount of stool within the rectum is noted. There is a moderate amount of stool within the colon. There is no evidence for a bowel obstruction. No pelvic hematoma is present. There are healed intertrochanteric fractures of both femurs status post internal fixation. Internal fixation hardware is partially imaged. No acute fracture within the pelvis or hips is identified. Note is made of T10 L1, L2, L3 and S1 L4 compression fractures. These are unchanged and CT of February 06, 2021. Vertebral body height loss is most pronounced at the L3 level with there is associated mild retropulsion. No new fractures are identified since that exam. Old right pubic bone fracture is present. IMPRESSION: 1. No acute traumatic findings. No change since CT of February 14, 2021. 2. Large amount of stool within the rectum and moderate amount stool within the colon. No bowel obstruction. 3. Bilateral nephrolithiasis. 4. Lower thoracic, lumbar and sacral compression fractures which are unchanged since CT of February 14, 2021. These are age-indeterminate but probably subacute to chronic. No new fractures since prior CT. ACT 112: Negative or not required by law. Electronically signed by: Solitario Salazar M.D. 02/20/2021 2:20 PM Forearm X-Ray 02/20/21 13:36 XR forearm RT 2V CLINICAL HISTORY: fall COMPARISON: None FINDINGS: No acute fracture of the right radius or ulna is identified. There is no evidence for a right elbow joint effusion. No osseous lesion is noted. IMPRESSION: No acute fracture of the right radius or ulna. ACT 112: Negative or not required by law. Electronically signed by: Solitario Salazar M.D. 02/20/2021 2:[address] 02/20/21 13:36 CT OF THE HEAD WITHOUT CONTRAST CLINICAL HISTORY: fall, dementia COMPARISON STUDY: No previous studies for comparison. TECHNIQUE: Helical axial images of the head were obtained without IV contrast. Automated exposure control was utilized for the study. A dose lowering technique was utilized adhering to the principles of ALARA. FINDINGS: No acute intracranial hemorrhage, midline shift or mass effect is present. Moderate atrophy is noted. The ventricular system is unremarkable. The basal cisterns are patent. No extra-axial collections are present. There are no findings to suggest acute dural sinus thrombosis or acute territorial infarct. No significant calvarial abnormalities are present. Secretions within the left sphenoid sinus are noted. IMPRESSION: 1. No acute intracranial findings. 2. No calvarial fracture. ACT 112: Negative or not required by law. Electronically signed by: Solitario Salazar M.D. 02/20/2021 2:04 PM Humerus X-Ray 02/20/21 13:36 XR humerus RT 2V CLINICAL HISTORY: fall COMPARISON: None. DISCUSSION: No evidence of acute fracture dislocation. Diffuse osteopenia limits evaluation. Diffuse soft tissue edema is seen. IMPRESSION: Negative study. ACT 112: Negative or not required by law. The above report was generated using voice recognition software. It may contain grammatical, syntax or spelling errors. Electronically signed by: Angeline Bagley DO 02/20/2021 2:31 PM Chest X-Ray 02/20/21 18:26 XR chest 1V portable CLINICAL HISTORY: elevated wbc COMPARISON STUDY: No previous studies for comparison. FINDINGS: Lung volumes are normal. There is mild right basilar opacity. There is no pneumothorax or pleural effusion. Cardiac size is normal. Mediastinal contours are normal. There is no evidence for pulmonary edema. Left axillary surgical clips are incidentally noted. IMPRESSION: Mild right basilar opacity. Atelectasis is favored although a developing infectious process could appear similar. ACT 112: Negative or not required by law. Electronically signed by: Solitario Salazar M.D. 02/20/2021 6:45 PM [facility] Narrative Physical exam and history were performed. Nursing notes, EMR, and Medication List were personally reviewed. Patient appears to have suffered a fall today [facility] The patient is very pleasantly demented. Much of her discomfort appears to be her arm, head, and hips. CT scans and x-rays were ordered. Imaging studies were reviewed by myself, my attending, and radiology. She does not appear to have acute musculoskeletal injury more than her contusions. She continues to have a significant amount of stool in her abdomen with severe fecal impaction. We did attempt to treat this in the emergency department with a milk of molasses enema. Unfortunately the patient is unable to hold water in the rectal space to achieve good results. No significant stool was produced. After review with my attending we do not feel the patient is well for discharge. Her constipation symptoms are complicated by her underlying dementia, and certainly could lead to a precipitous decrease in her status. The case was discussed with the on-call hospitalist team who agreed to evaluate her here in the ER. Please see their dictation for further patient course, plan, and disposition. The chart was completed utilizing [employer] Speech Voice Recognition Software. Grammatical errors, random word insertions, pronoun errors, and incomplete sentences are an occasional consequence of this system due to software limitations, ambient noise, and hardware issues. Any formal questions or concerns about the content, text, or information contained within the body of this dictation should be directly addressed to the provider for clarification. . Impression & Plan Fecal impaction in rectum, Fall, Compression deformity of vertebra Discharge Plan Visit Data Chief Complaint: Fall Stated Complaint: FALL, BRUISING TO LOPEZ BUISING, HIP PAIN ED Provider: Jose Luis Vera ED Midlevel Provider: Felipe Gonzalez Discharge Problem: Fecal impaction in rectum, Fall, Compression deformity of vertebra Forms Stand Alone Forms: [email or web address] Prescriptions Prescriptions: No Action rivastigmine 9.5 mg/24 hour patch 24 hour 1 patch transdermal DAILY RF: 0 acetaminophen 325 mg Tablet 325 mg PO QID PRN (Reason: Pain) RF: 0 calcium carbonate-vitamin D3 600 mg(1,500mg) -200 unit Tablet 2 tab PO DAILY RF: 0 docusate sodium 100 mg Capsule 100 mg PO BID RF: 0 B-complex with vitamin C Tablet 1 tab PO DAILY RF: 0 multivitamin [Daily-Zen] Tablet 1 tab PO DAILY RF: 0 polyethylene glycol 3350 [Miralax] 17 gram Powder In Packet 17 g PO DAILY PRN (Reason: constipation) Qty: 30 RF: 0 Referrals Referrals: Rishabh Malik D.[facility] [Outside Practitioners] -
--- NOTE | 2021-02-20 14:05 | CT Scan Report ---
CT OF THE HEAD WITHOUT CONTRAST CLINICAL HISTORY: fall, dementia COMPARISON STUDY: No previous studies for comparison. TECHNIQUE: Helical axial images of the head were obtained without IV contrast. Automated exposure con trol was utilized for the study. A dose lowering technique was utilized adhering to the principles o f ALARA. FINDINGS: No acute intracranial hemorrhage, midline shift or mass effect is present. Moderate atrophy is noted. The ventricular system is unremarkable. The basal cisterns are patent. No extra-axial luz ections are present. There are no findings to suggest acute dural sinus thrombosis or acute territori al infarct. No significant calvarial abnormalities are present. Secretions within the left sphenoid s inus are noted. IMPRESSION: 1. No acute intracranial findings. 2. No calvarial fracture. ACT 112: Negative or not required by law. Electronically signed by: Solitario Salazar M.D. 02/20/2021 2:04 PM
--- NOTE | 2021-02-20 14:21 | CT Scan Report ---
CT OF THE ABDOMEN AND PELVIS WITHOUT CONTRAST CLINICAL HISTORY: Fall. Constipation. L hip pain. COMPARISON STUDY: CT of the abdomen and pelvis February 14, 2021. TECHNIQUE: Axial images of the abdomen and pelvis were obtained without IV contrast. Images were revi ewed in the axial, sagittal, and coronal planes. Automated exposure control was utilized for the wes dy. A dose lowering technique was utilized adhering to the principles of ALARA. FINDINGS: Cardiomegaly is noted. This exam is compromised given the lack of intravenous contrast. No pneumatosis, free air or portal venous gas is present. Unenhanced images of the liver, spleen, adrena l glands, kidneys and pancreas are unremarkable with exception of several small bilateral renal calcu li. There is no ureteral calculi. No hydronephrosis. A large amount of stool within the rectum is not ed. There is a moderate amount of stool within the colon. There is no evidence for a bowel obstructio n. No pelvic hematoma is present. There are healed intertrochanteric fractures of both femurs status post internal fixation. Internal fixation hardware is partially imaged. No acute fracture within the pelvis or hips is identified. Note is made of T10 L1, L2, L3 and S1 L4 compression fractures. These a re unchanged and CT of February 06, 2021. Vertebral body height loss is most pronounced at the L3 level w ith there is associated mild retropulsion. No new fractures are identified since that exam. Old right pubic bone fracture is present. IMPRESSION: 1. No acute traumatic findings. No change since CT of February 14, 2021. 2. Large amount of stool within the rectum and moderate amount stool within the colon. No bowel obstr uction. 3. Bilateral nephrolithiasis. 4. Lower thoracic, lumbar and sacral compression fractures which are unchanged since CT of February 14 021. These are age-indeterminate but probably subacute to chronic. No new fractures since prior CT. ACT 112: Negative or not required by law. Electronically signed by: Solitario Salazar M.D. 02/20/2021 2:20 PM
--- NOTE | 2021-02-20 14:32 | XRay Report ---
XR humerus RT 2V CLINICAL HISTORY: fall COMPARISON: None. DISCUSSION: No evidence of acute fracture dislocation. Diffuse osteopenia limits evaluation. Diffuse soft tissue edema is seen. IMPRESSION: Negative study. ACT 112: Negative or not required by law. The above report was generated using voice recognition software. It may contain grammatical, syntax o r spelling errors. Electronically signed by: Angeline Bagley DO 02/20/2021 2:31 PM
--- NOTE | 2021-02-20 14:44 | XRay Report ---
XR forearm RT 2V CLINICAL HISTORY: fall COMPARISON: None FINDINGS: No acute fracture of the right radius or ulna is identified. There is no evidence for a ri ght elbow joint effusion. No osseous lesion is noted. IMPRESSION: No acute fracture of the right radius or ulna. ACT 112: Negative or not required by law. Electronically signed by: Solitario Salazar M.D. 02/20/2021 2:43 PM
[2021-02-20] MEDS ORDERED: POLYETHYLENE (MIRALAX) 17 GM PACK PO PRN (17:32)
[2021-02-20] MEDS ORDERED: MAGNESIUM HYDROXIDE SUSP 30 ML UDC PO PRN (17:32)
[2021-02-20] MEDS ORDERED: ALUMINUM/MAGNESIUM SUSP 30 ML UDC PO PRN (17:32)
[2021-02-20] MEDS ORDERED: ACETAMINOPHEN 325 MG TAB PO PRN (17:32)
[2021-02-20] MEDS ORDERED: ONDANSETRON INJ 2 MG/ML 2 ML VIAL IV PRN (17:40)
[2021-02-20] MEDS ORDERED: SODIUM CHLORIDE 0.9% 1000ML 1,000 ML IV SCH (18:00)
--- NOTE | 2021-02-20 18:03 | History & Physical Report ---
Date of Service February 20, 2021 Assessment & Plan (1) Fecal impaction in rectum: (2) Constipation: (3) Fall: (4) Ambulatory dysfunction: (5) Dementia: (6) Compression deformity of vertebra: Plan: This is a pleasantly confused demented 71-year-old female who resides at personal care facility presenting with fall. She does not appear to have any acute trauma secondary to fall. Pain really unassessable secondary to underlying cognitive status but currently is pleasant. Spoke with staff at nursing facility who gives minimal input. Recently admitted 02/14-02/17 secondary to nausea, vomiting and evidence of constipation. Per documentation episodes of bowel movement 02/14 and 02/15. Currently patient not complaining of any nausea and vomiting and staff at facility deny any recurrence. They were unaware if she has had bowel movements since discharge. Admit under observation to medical Consult PT/OT secondary to fall Obtain orthostatic vital signs Obtain IV site, 1 L of IV fluid normal saline CBC, CMP, magnesium Start on senna S2 tablets twice daily, MiraLAX once daily give biscodyl suppository if no BM at 9pm Consider consulting GI if no bowel movement KUB in a.m. Compression Fxs per CT T10 L1, L2, L3 and L4 and S1 compression fractures. These are unchanged and CT of February 06, 2021. Vertebral body height loss is most pronounced at the L3 level with there is associated mild retropulsion. No new fractures are identified since that exam pt does not report pain but hx limited PT/OT ? if contributing to constipation Leukocytosis wbc 13k, may be reactive in setting of constipation afebrile obtain urinalysis and CXR Dispo: med surg FULL CODE PCP: Liliam Pt was seen and examined in collaboration with Dr. Lieberman, please see addendum History of Present Illness Chief Complaint: Fall prior to arrival. Primary Care Provider: Liliam This is a 71-year-old female who has significant past medical history of dementia and breast cancer who resides at personal care facility and presents to ED today secondary to fall prior to arrival. She had an unwitnessed fall, but nursing staff heard her go down. When they saw the patient she was alert and complaining of right-sided hip pain. It is unsure if she hit her head or lost consciousness. History is severely limited secondary to underlying dementia as she reports, "yes," to everything." Of significance patient was recently hospitalized on 02/14-02/17 secondary to nausea and vomiting. She underwent CT abdomen pelvis which revealed fecal impaction and minimal mesenteric edema. There was also concern about possible cystitis but urine culture was negative. She did receive 3 days of IV antibiotics. Also noted on imaging was multilevel compression fracture deformities lumbar spine. According to nursing notes she did have small bowel movement on 02/14 and 02/15. Her nausea and vomiting resolved after being started on bowel regimen and she tolerated diet and therefore was sent back to personal care. In ED today she remained hemodynamically stable. She underwent humerus x-ray, forearm x-ray, head CT and CT abdomen pelvis which was negative for any acute fracture. CT today continues to show large amount of stool within the rectum and moderate amount of stool within the colon. Also noted are lower thoracic, lumbar and sacral compression fractures which are unchanged from CT on 02/14. Likely subacute and chronic. Allergies Allergy/AdvReac Type Severity Reaction Status Date / Time pollen extracts Allergy Unknown Unverified 02/20/21 14:14 Sulfa (Sulfonamide Allergy Unknown Unverified 02/20/21 14:14 Antibiotics) wheat Allergy Unknown Unverified 02/20/21 14:14 Home Medications Medication Instructions Recorded Confirmed Type B-complex with vitamin C 1 tab PO DAILY 02/14/21 02/20/21 History acetaminophen 325 mg tablet 325 mg PO QID PRN 02/14/21 02/20/21 History calcium carbonate 600 mg (1,500 2 tab PO DAILY 02/14/21 02/20/21 History mg)-vitamin D3 200 unit tablet docusate sodium 100 mg capsule 100 mg PO BID 02/14/21 02/20/21 History multivitamin (Daily-Zen) 1 tab PO DAILY 02/14/21 02/20/21 History rivastigmine 1 patch TRANSDERMAL DAILY 02/14/21 02/20/21 History polyethylene glycol 3350 17 gram 17 g PO DAILY PRN #30 ea 02/17/21 02/20/21 Rx oral powder packet (Miralax) Past Med/Surg History Medical History Breast cancer Dementia Vomiting Surgical History History of breast surgery History of hysterectomy Family History Other Family history unobtainable due to patient's condition Social History Smoking Status: Unknown if ever smoked Preferred Language: Japanese Communication Ability: Effective Grip Required: No Current Living Situation: Personal Care Facility Current Living Situation Comment: liliam Feels Safe at Home: Yes Assistive Devices: Glasses Review of Systems Review of Systems: Unobtainable due to cognitive status Physical Exam Physical Exam: Constitutional: Petite, elderly, female, pleasant and answers, "yes," everything, vitals as above, NAD, sitting up in bed Head: Normocephalic, Atraumatic Eyes: PERRL, conjunctivae normal, anicteric sclerae ENMT: external ear and nose normal, oropharynx normal Neck: trachea midline, no thyromegaly normal visual inspection Respiratory: normal respiratory effort, lungs clear to auscultation, no wheeze, rales, rhonchi. Normal insp/exp effort, no accessory muscle use Cardiovascular: RRR, no murmur, no edema Vessels: no JVD or carotid bruit Chest: normal inspection of chest Abdomen: normal bowel sounds, soft, nontender, no hepatosplenomegaly Musculoskeletal: no cyanosis or clubbing, extremities motor strength 5/5 Skin: Left dorsal forearm with ecchymoses, no rashes, warm and dry normal turgor Neurologic: PERRL, EOMI, accommodation nl, no face palsy, no dysarthria CN's II-XI intact bilaterally and moves all extremities Psychiatric: A+O to self only, euthymic affect Lymphatic: no cervical or axillary lymphadenopathy : deferred Results & Data Results & Data ([facility]) Vital Signs (Past 12 Hours) Vital Signs Temp Pulse Pulse Resp BP BP Pulse Ox 02/20/21 16:40 67 20 133/67 98 02/20/21 14:45 76 20 134/76 98 02/20/21 12:54 37 C 75 20 143/67 H 99 Diagnostic Findings Abdomen/Pelvis CT 02/20/21 13:36 CT OF THE ABDOMEN AND PELVIS WITHOUT CONTRAST CLINICAL HISTORY: Fall. Constipation. L hip pain. COMPARISON STUDY: CT of the abdomen and pelvis February 14, 2021. TECHNIQUE: Axial images of the abdomen and pelvis were obtained without IV contrast. Images were reviewed in the axial, sagittal, and coronal planes. Automated exposure control was utilized for the study. A dose lowering technique was utilized adhering to the principles of ALARA. FINDINGS: Cardiomegaly is noted. This exam is compromised given the lack of intravenous contrast. No pneumatosis, free air or portal venous gas is present. Unenhanced images of the liver, spleen, adrenal glands, kidneys and pancreas are unremarkable with exception of several small bilateral renal calculi. There is no ureteral calculi. No hydronephrosis. A large amount of stool within the rectum is noted. There is a moderate amount of stool within the colon. There is no evidence for a bowel obstruction. No pelvic hematoma is present. There are healed intertrochanteric fractures of both femurs status post internal fixation. Internal fixation hardware is partially imaged. No acute fracture within the pelvis or hips is identified. Note is made of T10 L1, L2, L3 and S1 L4 antonio keyonna fractures. These are unchanged and CT of February 06, 2021. Vertebral body height loss is most pronounced at the L3 level with there is associated mild retropulsion. No new fractures are identified since that exam. Old right pubic bone fracture is present. IMPRESSION: 1. No acute traumatic findings. No change since CT of February 14, 2021. 2. Large amount of stool within the rectum and moderate amount stool within the colon. No bowel obstruction. 3. Bilateral nephrolithiasis. 4. Lower thoracic, lumbar and sacral compression fractures which are unchanged since CT of February 14, 2021. These are age-indeterminate but probably subacute to chronic. No new fractures since prior CT. ACT 112: Negative or not required by law. Electronically signed by: Solitario Salazar M.D. 02/20/2021 2:20 PM Forearm X-Ray 02/20/21 13:36 XR forearm RT 2V CLINICAL HISTORY: fall COMPARISON: None FINDINGS: No acute fracture of the right radius or ulna is identified. There is no evidence for a right elbow joint effusion. No osseous lesion is noted. IMPRESSION: No acute fracture of the right radius or ulna. ACT 112: Negative or not required by law. Electronically signed by: Solitario Salazar M.D. 02/20/2021 2:[address] 02/20/21 13:36 CT OF THE HEAD WITHOUT CONTRAST CLINICAL HISTORY: fall, dementia COMPARISON STUDY: No previous studies for comparison. TECHNIQUE: Helical axial images of the head were obtained without IV contrast. Automated exposure control was utilized for the study. A dose lowering technique was utilized adhering to the principles of ALARA. FINDINGS: No acute intracranial hemorrhage, midline shift or mass effect is present. Moderate atrophy is noted. The ventricular system is unremarkable. The basal cisterns are patent. No extra-axial collections are present. There are no findings to suggest acute dural sinus thrombosis or acute territorial infarct. No significant calvarial abnormalities are present. Secretions within the left sphenoid sinus are noted. IMPRESSION: 1. No acute intracranial findings. 2. No calvarial fracture. ACT 112: Negative or not required by law. Electronically signed by: Solitario Salazar M.D. 02/20/2021 2:04 PM Humerus X-Ray 02/20/21 13:36 XR humerus RT 2V CLINICAL HISTORY: fall COMPARISON: None. DISCUSSION: No evidence of acute fracture dislocation. Diffuse osteopenia limits evaluation. Diffuse soft tissue edema is seen. IMPRESSION: Negative study. ACT 112: Negative or not required by law. The above report was generated using voice recognition software. It may contain grammatical, syntax or spelling errors. Electronically signed by: Angeline Bagley DO 02/20/2021 2:31 PM COVID-19 Results Results COVID-19 Adm Lab Results: RBC 4.42 M/uL (4.2-5.4) 02/20/21 WBC 13.11 K/uL (4.8-10.8) H 02/20/21 Hgb 14.0 g/dL (12.0-16.0) 02/20/21 Hct 42.7 % (37-47) 02/20/21 Plt Count 277 K/uL (130-400) 02/20/21 Neutrophils (%) (Auto) 83.5 % 02/20/21 Lymphocytes (%) (Auto) 9.9 % 02/20/21 Monocytes # (Auto) 0.77 K/uL (0.11-0.59) H 02/20/21 Eosinophils # (Auto) 0.04 K/uL (0-0.5) 02/20/21 Immature Granulocyte % (Auto) 0.2 % 02/20/21 Neutrophils # (Auto) 10.95 K/uL (1.4-6.5) H 02/20/21 Lymphocytes # (Auto) 1.30 K/uL (1.2-3.4) 02/20/21 Monocytes # (Auto) 0.77 K/uL (0.11-0.59) H 02/20/21 Eosinophils # (Auto) 0.04 K/uL (0-0.5) 02/20/21 Basophils # (Auto) 0.02 K/uL (0-0.2) 02/20/21 Immature Granulocyte # (Auto) 0.03 K/uL (0.00-0.02) H 02/20/21 Na 141 mmol/L (136-145) 02/20/21 K 4.2 mmol/L (3.5-5.1) 02/20/21 Cl 107 mmol/L (98-107) 02/20/21 CO2 30 mmol/L (21-32) 02/20/21 Anion Gap 3.0 (3-11) 02/20/21 BUN 16 mg/dl (7-18) 02/20/21 Creatinine 0.52 mg/dl (0.6-1.2) L 02/20/21 BUN/Creatinine Ratio 30.1 (10-20) H 02/20/21 Glucose Level 113 mg/dl (70-99) H 02/20/21 Ca 9.4 mg/dl (8.5-10.1) 02/20/21 Total Bilirubin 0.2 mg/dl (0.2-1) 02/20/21 AST/SGOT 18 U/L (15-37) 02/20/21 ALT/SGPT 23 U/L (12-78) 02/20/21 Alkaline Phosphatase 99 U/L (45-117) 02/20/21 Total Protein 8.0 gm/dl (6.4-8.2) 02/20/21 Albumin 4.0 gm/dl (3.4-5.0) 02/20/21 Globulin 4.0 gm/dl (2.5-4.0) 02/20/21 Albumin/Globulin Ratio 1.0 (0.9-2) 02/20/21 COVID-19 PCR NEGATIVE (Negative) 02/20/21 Chest X-Ray 02/20/21 Code Status & VTE Plan Code Status Full Code VTE Prophylaxis Plan VTE Prophylaxis will be ordered: Yes Supervising Physician Co-Signing Physician Notes Attending addendum: The patient was seen and examined in emergency room She is a 71-year-old female with severe dementia was brought in from [facility] following mechanical fall She is not any distress and answered any questions with yes She noted to have severe constipation in imaging studies On examination No apparent distress at rest Hemodynamically stable Chest-clear to auscultate bilaterally Heart-S1-S2, regular Abdomen-mildly distended, soft, bowel sounds sluggish Extremities-negative for any edema Her admission labs, imaging studies and EKG reviewed Has severe constipation Dementia Mechanical fall Agree with assessment and plan as outlined above by MATT Alcantara DR
[2021-02-20 18:15] LABS: Basophils # (auto) 0.02 K/uL (0-0.2); Basophils % (auto) 0.2 %; Eosinophils # (auto) 0.04 K/uL (0-0.5); Eosinophils % (auto) 0.3 %; Hematocrit (blood only) 42.7 % (37-47); Immature Granulocytes # (auto) 0.03 K/uL (0.00-0.02); Immature Granulocytes % (auto) 0.2 %; Lymphocytes % (auto) 9.9 %; Mean Corpuscular Hemoglobin 31.7 pg (25-34); Mean Corpuscular Hgb Conc 32.8 g/dL (32-36); Mean Corpuscular Volume 96.6 fL (80-100); Mean Platelet Volume 10.3 fL (7.4-10.4); Monocytes # (auto) 0.77 K/uL (0.11-0.59); Monocytes % (auto) 5.9 %; Neutrophils # (auto) 10.95 K/uL (1.4-6.5); Neutrophils % (auto) 83.5 %; Platelet Count 277 K/uL (130-400); RDW Coefficient of Variation 13.3 % (11.5-14.5); RDW Standard Deviation 47.2 fL (36.4-46.3); Red Blood Count 4.42 M/uL (4.2-5.4); White Blood Count 13.11 K/uL (4.8-10.8)
[2021-02-20 18:35] LABS: BUN Creatinine Ratio 30.1 (10-20); Calcium 9.4 mg/dl (8.5-10.1); Creatinine Clr Calc Pharmacy 66.7 ml/min; Est GFR (African American) 111.4 ml/min; Est GFR (Non-African American) 96.1 ml/min; Magnesium 2.4 mg/dl (1.8-2.4); Potassium 4.2 mmol/L (3.5-5.1)
[2021-02-20 18:44] LABS: Bilirubin,Total 0.2 mg/dl (0.2-1)
--- NOTE | 2021-02-20 18:47 | XRay Report ---
XR chest 1V portable CLINICAL HISTORY: elevated wbc COMPARISON STUDY: No previous studies for comparison. FINDINGS: Lung volumes are normal. There is mild right basilar opacity. There is no pneumothorax or p leural effusion. Cardiac size is normal. Mediastinal contours are normal. There is no evidence for pu lmonary edema. Left axillary surgical clips are incidentally noted. IMPRESSION: Mild right basilar opacity. Atelectasis is favored although a developing infectious proce ss could appear similar. ACT 112: Negative or not required by law. Electronically signed by: Solitario Salazar M.D. 02/20/2021 6:45 PM
[2021-02-20] MEDS: POLYETHYLENE (MIRALAX) 17 GM PACK PO SCH (19:14)
[2021-02-20 20:36] LABS: Appearance Urine Clear (Clear); Bacteria Urine Automated Negative (Negative); Bilirubin Urine Negative (Negative); Blood Urine Negative (Negative); Color Urine Dark Yellow; Glucose Urine UA Negative (Negative); Ketones Urine Trace (Negative); Leukocyte Esterase Urine 1+ (Negative); Nitrite Urine Negative (Negative); Protein Urine Negative (Negative); RBC Urine Automated 0-4 /hpf (0-4); Specific Gravity Urine 1.019 (1.000-1.030); Urobilinogen Urine Negative (Negative)
[2021-02-20] MEDS ORDERED: bisacodyL 10 MG SUPP PR ONE (22:00)
[2021-02-21] MEDS: DOCUSATE SODIUM/SENNA 50/8.6MG TAB PO SCH ×3 (00:21→21:00)
[2021-02-21 08:34] LABS: Hematocrit (blood only) 35.2 % (37-47); Hemoglobin 11.4 g/dL (12.0-16.0); Mean Corpuscular Hemoglobin 30.8 pg (25-34); Mean Corpuscular Hgb Conc 32.4 g/dL (32-36); Mean Corpuscular Volume 95.1 fL (80-100); Mean Platelet Volume 10.7 fL (7.4-10.4); Platelet Count 214 K/uL (130-400); RDW Coefficient of Variation 13.2 % (11.5-14.5); RDW Standard Deviation 45.7 fL (36.4-46.3)
[2021-02-21] MEDS: POLYETHYLENE (MIRALAX) 17 GM PACK PO SCH (09:08)
--- NOTE | 2021-02-21 09:50 | Hospitalist Progress Note ---
Date of Service February 21, 2021 Assessment & Plan (1) Fecal impaction in rectum: (2) Constipation: (3) Fall: (4) Ambulatory dysfunction: (5) Dementia: (6) Compression deformity of vertebra: Plan: 71-year-old female with dementia who resides at personal care facility presenting with fall. She does not appear to have any acute trauma secondary to fall. Patient not in any painful distress Compression fractures noted on CT T10 L1, L2, L3 and L4 and S1 compression fractures. These are unchanged and CT of February 06, 2021. Vertebral body height loss is most pronounced at the L3 level with there is associated mild retropulsion. No new fractures are identified since that exam pt does not report pain but hx limited Get PT/OT evaluation Continue bowel regimen Leukocytosis WBC 13k on admission Chest x-ray reports mild right basilar which could be atelectasis. No hypoxia, cough per RN. Procalcitonin is normal Low suspicion for pneumonia. WBC improving. Hold off antibiotics and monitor Currently on clear liquids. Advance to easy to chew diet as tolerated. Aspiration precautions Get doppler of LE to assess Left leg edema May be positional as patient appear to tend to favor laying on left side FULL CODE PCP: Liliam Possible discharge tomorrow Admission and Anticipated Discharge Date Admission Date: February 20, 2021 Subjective 71-year-old woman with history of dementia and breast cancer who was brought in yesterday after a fall Patient seen and examined this morning. Not able to obtain any review of systems due to dementia this patient answers yes to everything. Was able to tell me her name only Review of Systems Review of Systems: Unobtainable due to cognitive status Physical Exam Constitutional: + well hydrated; no acute distress Eyes: PERRL, conjunctivae normal, anicteric sclerae ENMT: external ear and nose normal, oropharynx normal Respiratory: normal respiratory effort, lungs clear to auscultation Cardiovascular: Rate/Rhythm: regular rate and regular rhythm Chest (Breasts): Additional Comments: S1-S2, no pedal edema Gastrointestinal (Abdomen): normal bowel sounds, soft, nontender, no hepatosplenomegaly Musculoskeletal: +edema on left leg Neurologic: PERRL, EOMI, accommodation nl, no face palsy, no dysarthria Follow simple commands Psychiatric: Orientation: alert and oriented to person; + not oriented to place and + not oriented to time Genitourinary: Barth in situ Results & Data Results & Data ([facility]) Vital Signs (Past 12 Hours) Vital Signs Temp Pulse Resp BP BP Pulse Ox 02/21/21 07:49 36.9 C 81 18 149/66 H 96 02/21/21 00:23 37.4 C 82 16 128/80 98 02/20/21 22:32 95 H 20 137/77 98 Laboratory Results Abnormal lab results 02/20/21 02/20/21 02/20/21 Range/Units 18:05 18:05 20:00 WBC 13.11 H (4.8-10.8) K/uL RBC (4.2-5.4) M/uL Hgb (12.0-16.0) g/dL Hct (37-47) % RDW Std Deviation 47.2 H (36.4-46.3) fL MPV (7.4-10.4) fL Neut # (Auto) 10.95 H (1.4-6.5) K/uL [place] # (Auto) 0.77 H (0.11-0.59) K/uL Immature Gran # (Auto) 0.03 H (0.00-0.02) K/uL Creatinine 0.52 L (0.6-1.2) mg/dl BUN/Creatinine Ratio 30.1 H (10-20) Glucose 113 H (70-99) mg/dl Urine Ketones Trace H (Negative) Ur Leukocyte Esterase 1+ H (Negative) Urine WBC (Auto) 5-10 H (0-5) /hpf U Epithel Cells (Auto) 10-20 H (0-5) /lpf 02/21/21 Range/Units 08:02 WBC 12.40 H (4.8-10.8) K/uL RBC 3.70 L (4.2-5.4) M/uL Hgb 11.4 L (12.0-16.0) g/dL Hct 35.2 L (37-47) % RDW Std Deviation (36.4-46.3) fL MPV 10.7 H (7.4-10.4) fL Neut # (Auto) (1.4-6.5) K/uL [place] # (Auto) (0.11-0.59) K/uL Immature Gran # (Auto) (0.00-0.02) K/uL Creatinine (0.6-1.2) mg/dl BUN/Creatinine Ratio (10-20) Glucose (70-99) mg/dl Urine Ketones (Negative) Ur Leukocyte Esterase (Negative) Urine WBC (Auto) (0-5) /hpf U Epithel Cells (Auto) (0-5) /lpf
[2021-02-21] MEDS: VITAMIN B COMPLEX TAB PO SCH (10:28)
--- NOTE | 2021-02-21 15:45 | Ultrasound Report ---
ULTRASOUND BILATERAL LOWER EXTREMITY VENOUS CLINICAL HISTORY: Leg pain COMPARISON STUDY: No priors. TECHNIQUE: Real-time, grayscale, and color Doppler sonography of the deep veins of the right and left lower extremity was performed from the inguinal crease to the calf. Compression and augmentation wer e utilized. FINDINGS: Right lower extremity: There is no sonographic evidence of deep venous thrombosis in the right lower extremity. The common femoral, superficial femoral, and popliteal veins are patent and normally compr essible. The greater saphenous vein and the profunda femoris vein at the junction with the common fem oral vein are clear. The visualized calf veins are patent. Left lower extremity: There is deep venous thrombosis identified in the left calf within the posterio r tibial and peroneal veins. There may also be deep venous thrombosis within the popliteal vein. The common femoral and superficial femoral veins are patent and normally compressible. The greater saphen ous vein and the profunda femoris vein at the junction with the common femoral vein are clear. IMPRESSION: 1. Left lower extremity deep venous thrombosis as above, greatest in the calf. 2. There is no sonographic evidence of right lower extremity deep venous thrombosis. ACT 112: Negative or not required by law. Electronically signed by: Valentin Morales M.D. 02/21/2021 3:44 PM
--- NOTE | 2021-02-21 16:09 | XRay Report ---
XR KUB/Abdomen 1 view CLINICAL HISTORY: fecal impaction COMPARISON STUDY: No previous studies for comparison. FINDINGS: Paucity of gas is seen within upper abdomen. Multiple gas and stool-filled loops of bowel are seen within lower abdomen and pelvis. Large amount o f stool is seen within lower pelvic region which might represent fecal impaction. Osseous structures are diffusely demineralized. Orthopedic hardware is seen within right and left hip joints. Multiple costochondral calcifications are seen. IMPRESSION: 1. Possible fecal impaction. ACT 112: Negative or not required by law. The above report was generated using voice recognition software. It may contain grammatical, syntax o r spelling errors. Electronically signed by: Angeline Bagley DO 02/21/2021 4:08 PM
[2021-02-21] MEDS ORDERED: ENOXAPARIN INJ 60 MG/0.6 ML SYR SQ SCH (17:00)
[2021-02-22 06:00] LABS: Hematocrit (blood only) 33.7 % (37-47); Hemoglobin 11.2 g/dL (12.0-16.0); Mean Corpuscular Hemoglobin 31.4 pg (25-34); Mean Corpuscular Hgb Conc 33.2 g/dL (32-36); Mean Corpuscular Volume 94.4 fL (80-100); Mean Platelet Volume 10.4 fL (7.4-10.4); Platelet Count 219 K/uL (130-400); RDW Coefficient of Variation 13.1 % (11.5-14.5); RDW Standard Deviation 45.5 fL (36.4-46.3); Red Blood Count 3.57 M/uL (4.2-5.4); White Blood Count 11.01 K/uL (4.8-10.8)
[2021-02-22 06:36] LABS: BUN Creatinine Ratio 25.5 (10-20); Calcium 8.4 mg/dl (8.5-10.1); Creatinine Clr Calc Pharmacy 90.3 ml/min; Est GFR (African American) 124.6 ml/min; Est GFR (Non-African American) 107.5 ml/min; Potassium 3.9 mmol/L (3.5-5.1)
[2021-02-22] MEDS: VITAMIN B COMPLEX TAB PO SCH (08:22)
[2021-02-22] MEDS: POLYETHYLENE (MIRALAX) 17 GM PACK PO SCH (08:22)
[2021-02-22] MEDS: DOCUSATE SODIUM/SENNA 50/8.6MG TAB PO SCH ×2 (08:24→20:43)
--- NOTE | 2021-02-22 13:12 | Hospitalist Progress Note ---
Date of Service February 22, 2021 Assessment & Plan (1) Fecal impaction in rectum: (2) Constipation: (3) Fall: (4) Ambulatory dysfunction: (5) Dementia: (6) Compression deformity of vertebra: (7) Left leg DVT: Plan: 71-year-old female with dementia who resides at personal care facility presenting with fall. She does not appear to have any acute trauma secondary to fall. Patient not in any painful distress Compression fractures noted on CT T10 L1, L2, L3 and L4 and S1 compression fractures. These are unchanged and CT of February 06, 2021. Vertebral body height loss is most pronounced at the L3 level with there is associated mild retropulsion. No new fractures are identified since that exam pt does not report pain but hx limited Continue PT/OT Continue bowel regimen Leukocytosis WBC 13k on admission, down to 11,000 Chest x-ray reports mild right basilar which could be atelectasis. No hypoxia, cough per RN. Procalcitonin is normal Low suspicion for pneumonia. WBC improving. Continue to hold off antibiotics and monitor Tolerating diet well. Aspiration precautions Dopplers show left leg DVT. Discussed with patient's POA Mr. Powell. We discussed the risk and benefits of anticoagulation. He was okay with continue anticoagulation. Will switch Lovenox injection to Eliquis p.o. FULL CODE PCP: Liliam Admission and Anticipated Discharge Date Admission Date: February 20, 2021 Subjective 71-year-old woman with history of dementia and breast cancer who was brought in yesterday after a fall Patient seen and examined this morning. Review of Systems Review of Systems: Unobtainable due to reduced consciousness Physical Exam Constitutional: + well hydrated; no acute distress Eyes: PERRL, conjunctivae normal, anicteric sclerae ENMT: external ear and nose normal, oropharynx normal Respiratory: normal respiratory effort, lungs clear to auscultation Cardiovascular: Rate/Rhythm: regular rate and regular rhythm S1 S2 Gastrointestinal (Abdomen): normal bowel sounds, soft, nontender, no hepatosplenomegaly Musculoskeletal: Left leg edema Neurologic: PERRL, EOMI, accommodation nl, no face palsy, no dysarthria Psychiatric: Orientation: alert and oriented to person; + not oriented to place and + not oriented to time Results & Data Results & Data ([facility]) Vital Signs (Past 12 Hours) Vital Signs Temp Pulse Resp BP Pulse Ox 02/22/21 11:33 36.9 C 107 H 16 148/71 H 95 02/22/21 07:41 36.8 C 91 H 16 146/72 H 96 02/22/21 04:00 37.1 C 87 18 135/72 97 Laboratory Results Abnormal lab results 02/22/21 02/22/21 Range/Units 05:28 05:28 WBC 11.01 H (4.8-10.8) K/uL RBC 3.57 L (4.2-5.4) M/uL Hgb 11.2 L (12.0-16.0) g/dL Hct 33.7 L (37-47) % Creatinine 0.37 L (0.6-1.2) mg/dl BUN/Creatinine Ratio 25.5 H (10-20) Glucose 114 H (70-99) mg/dl Calcium 8.4 L (8.5-10.1) mg/dl Diagnostic Findings Lower extremity Dopplers Right lower extremity: There is no sonographic evidence of deep venous thrombosis in the right lower extremity. The common femoral, superficial femoral, and popliteal veins are patent and normally compressible. The greater saphenous vein and the profunda femoris vein at the junction with the common femoral vein are clear. The visualized calf veins are patent. Left lower extremity: There is deep venous thrombosis identified in the left calf within the posterior tibial and peroneal veins. There may also be deep venous thrombosis within the popliteal vein. The common femoral and superficial femoral veins are patent and normally compressible. The greater saphenous vein and the profunda femoris vein at the junction with the common femoral vein are clear. IMPRESSION: 1. Left lower extremity deep venous thrombosis as above, greatest in the calf. 2. There is no sonographic evidence of right lower extremity deep venous thrombosis.
[2021-02-22] MEDS: APIXABAN 5 MG TABLET PO SCH (17:13)
[2021-02-23 05:52] LABS: Hematocrit (blood only) 32.8 % (37-47); Hemoglobin 10.8 g/dL (12.0-16.0); Mean Corpuscular Hemoglobin 30.9 pg (25-34); Mean Corpuscular Hgb Conc 32.9 g/dL (32-36); Mean Platelet Volume 10.5 fL (7.4-10.4); Platelet Count 199 K/uL (130-400); RDW Coefficient of Variation 13.4 % (11.5-14.5); RDW Standard Deviation 46.1 fL (36.4-46.3); Red Blood Count 3.49 M/uL (4.2-5.4); White Blood Count 12.89 K/uL (4.8-10.8)
[2021-02-23 06:19] LABS: BUN Creatinine Ratio 41.4 (10-20); Calcium 8.5 mg/dl (8.5-10.1); Creatinine Clr Calc Pharmacy 107.7 ml/min; Est GFR (African American) 132.1 ml/min; Potassium 4.1 mmol/L (3.5-5.1)
[2021-02-23] MEDS: POLYETHYLENE (MIRALAX) 17 GM PACK PO SCH (08:32)
[2021-02-23] MEDS: DOCUSATE SODIUM/SENNA 50/8.6MG TAB PO SCH ×2 (08:32→19:33)
[2021-02-23] MEDS: VITAMIN B COMPLEX TAB PO SCH (08:51)
[2021-02-23] MEDS: APIXABAN 5 MG TABLET PO SCH ×2 (08:51→19:34)
--- NOTE | 2021-02-23 09:58 | Hospitalist Progress Note ---
Date of Service February 23, 2021 Assessment & Plan (1) Fecal impaction in rectum: (2) Constipation: (3) Fall: (4) Ambulatory dysfunction: (5) Dementia: (6) Compression deformity of vertebra: (7) Left leg DVT: Plan: 71-year-old female with dementia who resides at personal care facility presenting with fall. She does not appear to have any acute trauma secondary to fall. Patient not in any painful distress Compression fractures noted on CT T10 L1, L2, L3 and L4 and S1 compression fractures. These are unchanged and CT of February 06, 2021. Vertebral body height loss is most pronounced at the L3 level with there is associated mild retropulsion. No new fractures are identified since that exam Continue PT/OT. Requiring assist Continue bowel regimen RN reported patient not taking miralax well. Will give enema today and start dulcolax [place] from tomorrow to help with constipation Had BM on 02/21/21 Leukocytosis WBC 13k on admission, down to 12k Chest x-ray reports mild right basilar which could be atelectasis. No hypoxia, cough per RN. Procalcitonin is normal Low suspicion for pneumonia. Continue to hold off antibiotics and monitor Tolerating diet well. Aspiration precautions Dopplers show left leg DVT. I called patient's POA Mr. Powell yesterday and we discussed the risk and benefits of anticoagulation. He was okay with continue anticoagulation. Currently on Eliquis p.o. FULL CODE PCP: Liliam LI on board working on discharge/placement Admission and Anticipated Discharge Date Admission Date: February 22, 2021 Subjective 71-year-old woman with history of dementia and breast cancer who was brought in yesterday after a fall Patient seen and examined this morning. Review of Systems Review of Systems: Unable to obtain due to cognitive status Physical Exam Constitutional: + well hydrated; no acute distress Eyes: PERRL, conjunctivae normal, anicteric sclerae ENMT: external ear and nose normal, oropharynx normal Respiratory: normal respiratory effort, lungs clear to auscultation Cardiovascular: Rate/Rhythm: regular rate and regular rhythm Gastrointestinal (Abdomen): normal bowel sounds, soft, nontender, no hepatosplenomegaly Musculoskeletal: No pedal edema Neurologic: PERRL, EOMI, accommodation nl, no face palsy, no dysarthria Psychiatric: Orientation: alert and oriented to person; + not oriented to place and + not oriented to time Results & Data Results & Data ([facility]) Vital Signs (Past 12 Hours) Vital Signs Temp Pulse Resp BP Pulse Ox 02/23/21 07:41 36.6 C 96 H 16 114/68 95 02/22/21 21:59 37.7 C H 111 H 18 119/69 96 Laboratory Results Abnormal lab results 02/23/21 02/23/21 Range/Units 05:26 05:26 WBC 12.89 H (4.8-10.8) K/uL RBC 3.49 L (4.2-5.4) M/uL Hgb 10.8 L (12.0-16.0) g/dL Hct 32.8 L (37-47) % MPV 10.5 H (7.4-10.4) fL Creatinine 0.31 L (0.6-1.2) mg/dl BUN/Creatinine Ratio 41.4 H (10-20) Glucose 107 H (70-99) mg/dl
[2021-02-23] MEDS ORDERED: SOD PHOSPHATE/SOD BIPHOSPHATE ENEMA 132 ML BTL PR STA (10:09)
[2021-02-23] MEDS: RIVASTIGMINE TARTRATE 1.5 MG CAP PO SCH (19:33)
[2021-02-24] MEDS: VITAMIN B COMPLEX TAB PO SCH (08:03)
[2021-02-24] MEDS: POLYETHYLENE (MIRALAX) 17 GM PACK PO SCH (08:03)
[2021-02-24] MEDS: RIVASTIGMINE TARTRATE 1.5 MG CAP PO SCH ×2 (08:03→20:31)
[2021-02-24] MEDS: DOCUSATE SODIUM/SENNA 50/8.6MG TAB PO SCH ×2 (08:04→20:31)
[2021-02-24] MEDS: APIXABAN 5 MG TABLET PO SCH ×2 (08:04→20:31)
[2021-02-24] MEDS: bisacodyL 10 MG SUPP PR SCH (08:04)
--- NOTE | 2021-02-24 16:48 | Hospitalist Progress Note ---
Date of Service February 24, 2021 Assessment & Plan (1) Fecal impaction in rectum: (2) Constipation: (3) Fall: (4) Ambulatory dysfunction: (5) Dementia: (6) Compression deformity of vertebra: (7) Left leg DVT: Plan: 71-year-old female with dementia who resides at personal care facility presenting with fall. She does not appear to have any acute trauma secondary to fall. Patient not in any painful distress Compression fractures noted on CT T10 L1, L2, L3 and L4 and S1 compression fractures. These are unchanged and CT of February 06, 2021. Vertebral body height loss is most pronounced at the L3 level with there is associated mild retropulsion. No new fractures are identified since that exam Continue bowel regimen Had BM yesterday Leukocytosis WBC 13k on admission, down to 12k Chest x-ray reports mild right basilar which could be atelectasis. No hypoxia, cough per RN. Procalcitonin is normal Low suspicion for pneumonia. Continue to hold off antibiotics and monitor Tolerating diet well. Aspiration precautions Dopplers show left leg DVT. Currently on Eliquis p.o. FULL CODE PCP: Liliam LI on board working on discharge/placement Admission and Anticipated Discharge Date Admission Date: February 22, 2021 Subjective 71-year-old woman with history of dementia and breast cancer who was brought in after a fall Found to have fecal impaction and left leg DVT Patient seen and examined this morning. Review of Systems Review of Systems: Unable to obtain due to cognitive status Physical Exam Constitutional: + well hydrated; no acute distress Eyes: PERRL, conjunctivae normal, anicteric sclerae ENMT: external ear and nose normal, oropharynx normal Respiratory: normal respiratory effort, lungs clear to auscultation Cardiovascular: Rate/Rhythm: regular rate and regular rhythm S1 S2 Gastrointestinal (Abdomen): normal bowel sounds, soft, nontender, no hepatosplenomegaly Musculoskeletal: Mild left CHIARA Neurologic: PERRL, EOMI, accommodation nl, no face palsy, no dysarthria Psychiatric: Orientation: alert and oriented to person; + not oriented to place and + not oriented to time Results & Data Results & Data ([facility]) Vital Signs (Past 12 Hours) Vital Signs Temp Pulse Pulse Resp BP BP Pulse Ox 02/24/21 15:51 37 C 102 H 16 126/74 95 02/24/21 11:43 37.3 C 105 H 13 118/58 L 97 02/24/21 07:55 36.8 C 87 21 128/60 97
[2021-02-25] MEDS: DOCUSATE SODIUM/SENNA 50/8.6MG TAB PO SCH ×2 (09:33→21:06)
[2021-02-25] MEDS: APIXABAN 5 MG TABLET PO SCH ×2 (09:33→21:06)
[2021-02-25] MEDS: POLYETHYLENE (MIRALAX) 17 GM PACK PO SCH (09:34)
[2021-02-25] MEDS: bisacodyL 10 MG SUPP PR SCH (09:34)
[2021-02-25] MEDS: VITAMIN B COMPLEX TAB PO SCH (09:34)
[2021-02-25] MEDS: RIVASTIGMINE TARTRATE 1.5 MG CAP PO SCH ×2 (09:34→21:07)
--- NOTE | 2021-02-25 14:10 | Hospitalist Progress Note ---
Date of Service February 25, 2021 Assessment & Plan (1) Fecal impaction in rectum: (2) Constipation: (3) Fall: (4) Ambulatory dysfunction: (5) Dementia: (6) Compression deformity of vertebra: (7) Left leg DVT: Plan: 71-year-old female with dementia who resides at personal care facility presenting with fall. She does not appear to have any acute trauma secondary to fall. Patient not in any painful distress Compression fractures noted on CT T10 L1, L2, L3 and L4 and S1 compression fractures. These are unchanged and CT of February 06, 2021. Vertebral body height loss is most pronounced at the L3 level with there is associated mild retropulsion. No new fractures are identified since that exam Continue bowel regimen Has been having bowel movement Leukocytosis WBC 13k on admission, trended down Chest x-ray reports mild right basilar which could be atelectasis. No hypoxia, cough per RN. Procalcitonin is normal Low suspicion for pneumonia. No antibiotics Tolerating diet well. Aspiration precautions Dopplers show left leg DVT. Currently on Eliquis p.o. FULL CODE PCP: Liliam LI working on discharge/placement Admission and Anticipated Discharge Date Admission Date: February 22, 2021 Subjective 71-year-old woman with history of dementia and breast cancer who was brought in after a fall Found to have fecal impaction and left leg DVT Patient seen and examined this morning. No events overnight Patient answers 'ok' and 'yes' to every question Review of Systems Review of Systems: Unable to obtain due to cognitive status Physical Exam Constitutional: + well hydrated; no acute distress Eyes: PERRL, conjunctivae normal, anicteric sclerae ENMT: external ear and nose normal, oropharynx normal Respiratory: normal respiratory effort, lungs clear to auscultation Cardiovascular: Rate/Rhythm: regular rate and regular rhythm S1 S2 Gastrointestinal (Abdomen): normal bowel sounds, soft, nontender, no hepatosplenomegaly Neurologic: PERRL, EOMI, accommodation nl, no face palsy, no dysarthria Psychiatric: Orientation: alert and oriented to person; + not oriented to elinor ce and + not oriented to time Results & Data Results & Data ([facility]) Vital Signs (Past 12 Hours) Vital Signs Temp Pulse Pulse Resp BP BP Pulse Ox 02/25/21 07:28 36.9 C 95 H 20 132/60 96 02/25/21 07:16 36.9 C 99 H 16 120/71 98
[2021-02-26] MEDS: APIXABAN 5 MG TABLET PO SCH ×2 (09:04→20:32)
[2021-02-26] MEDS: RIVASTIGMINE TARTRATE 1.5 MG CAP PO SCH ×2 (09:04→20:32)
[2021-02-26] MEDS: VITAMIN B COMPLEX TAB PO SCH (09:04)
[2021-02-26] MEDS: DOCUSATE SODIUM/SENNA 50/8.6MG TAB PO SCH ×2 (09:04→20:32)
[2021-02-26] MEDS: POLYETHYLENE (MIRALAX) 17 GM PACK PO SCH (09:05)
--- NOTE | 2021-02-26 10:43 | Hospitalist Progress Note ---
Date of Service February 26, 2021 Assessment & Plan (1) Fecal impaction in rectum: (2) Constipation: (3) Fall: (4) Ambulatory dysfunction: (5) Dementia: (6) Compression deformity of vertebra: (7) Left leg DVT: Plan: 71-year-old female with dementia who resides at personal care facility presenting with fall. She does not appear to have any acute trauma secondary to fall. Patient not in any painful distress Compression fractures noted on CT T10 L1, L2, L3 and L4 and S1 compression fractures. These are unchanged and CT of February 06, 2021. Vertebral body height loss is most pronounced at the L3 level with there is associated mild retropulsion. No new fractures are identified since that exam Continue bowel regimen Has been having bowel movement Leukocytosis WBC 13k on admission, trended down Chest x-ray reports mild right basilar which could be atelectasis. No hypoxia, cough per RN. Procalcitonin is normal Low suspicion for pneumonia. No antibiotics Tolerating diet well. Aspiration precautions Dopplers showed left leg DVT. Currently on Eliquis p.o. FULL CODE PCP: Liliam LI working on discharge/placement Called POA and updated Admission and Anticipated Discharge Date Admission Date: February 22, 2021 Subjective 71-year-old woman with history of dementia and breast cancer who was brought in after a fall Found to have fecal impaction and left leg DVT Patient seen and examined this morning. No events overnight Review of Systems Review of Systems: Unable to obtain due to cognitive status Physical Exam Constitutional: + well hydrated; no acute distress Eyes: PERRL, conjunctivae normal, anicteric sclerae ENMT: external ear and nose normal, oropharynx normal Respiratory: normal respiratory effort, lungs clear to auscultation Cardiovascular: Rate/Rhythm: regular rate and regular rhythm S1 S2 Gastrointestinal (Abdomen): normal bowel sounds, soft, nontender, no hepatosplenomegaly Neurologic: PERRL, EOMI, accommodation nl, no face palsy, no dysarthria Follows simple commands Psychiatric: Orientation: alert and oriented to person; + not oriented to place and + not oriented to time Results & Data Results & Data ([facility]) Vital Signs (Past 12 Hours) Vital Signs Temp Pulse Pulse Resp BP Pulse Ox 02/26/21 06:59 36.9 C 102 H 16 110/70 97 02/25/21 23:09 37.4 C 108 H 16 120/67 97
[2021-02-26] MEDS: bisacodyL 10 MG SUPP PR SCH (13:58)
[2021-02-27] MEDS: POLYETHYLENE (MIRALAX) 17 GM PACK PO SCH (09:28)
[2021-02-27] MEDS: DOCUSATE SODIUM/SENNA 50/8.6MG TAB PO SCH (09:29)
[2021-02-27] MEDS: APIXABAN 5 MG TABLET PO SCH (09:29)
[2021-02-27] MEDS: VITAMIN B COMPLEX TAB PO SCH (09:29)
[2021-02-27] MEDS: RIVASTIGMINE TARTRATE 1.5 MG CAP PO SCH (09:29)
--- NOTE | 2021-02-27 11:53 | Discharge Summary ---
Date of Service February 27, 2021 Admission HPI Per Admitting Provider This is a 71-year-old female who has significant past medical history of dementia and breast cancer who resides at personal care facility and presents to ED today secondary to fall prior to arrival. She had an unwitnessed fall, but nursing staff heard her go down. When they saw the patient she was alert and complaining of right-sided hip pain. It is unsure if she hit her head or lost consciousness. History is severely limited secondary to underlying dementia as she reports, "yes," to everything." Of significance patient was recently hospitalized on 02/14-02/17 secondary to nausea and vomiting. She underwent CT abdomen pelvis which revealed fecal impaction and minimal mesenteric edema. There was also concern about possible cystitis but urine culture was negative. She did receive 3 days of IV antibiotics. Also noted on imaging was multilevel compression fracture deformities lumbar spine. According to nursing notes she did have small bowel movement on 02/14 and 02/15. Her nausea and vomiting resolved after being started on bowel regimen and she tolerated diet and therefore was sent back to personal care. In ED today she remained hemodynamically stable. She underwent humerus x-ray, forearm x-ray, head CT and CT abdomen pelvis which was negative for any acute fracture. CT today continues to show large amount of stool within the rectum and moderate amount of stool within the colon. Also noted are lower thoracic, lumbar and sacral compression fractures which are unchanged from CT on 02/14. Likely subacute and chronic. Admission Exam Per Admitting Provider Constitutional: Petite, elderly, female, pleasant and answers, "yes," everything, vitals as above, NAD, sitting up in bed Head: Normocephalic, Atraumatic Eyes: PERRL, conjunctivae normal, anicteric sclerae ENMT: external ear and nose normal, oropharynx normal Neck: trachea midline, no thyromegaly normal visual inspection Respiratory: normal respiratory effort, lungs clear to auscultation, no wheeze, rales, rhonchi. Normal insp/exp effort, no accessory muscle use Cardiovascular: RRR, no murmur, no edema Vessels: no JVD or carotid bruit Chest: normal inspection of chest Abdomen: normal bowel sounds, soft, nontender, no hepatosplenomegaly Musculoskeletal: no cyanosis or clubbing, extremities motor strength 5/5 Skin: Left dorsal forearm with ecchymoses, no rashes, warm and dry normal turgor Neurologic: PERRL, EOMI, accommodation nl, no face palsy, no dysarthria CN's II-XI intact bilaterally and moves all extremities Psychiatric: A+O to self only, euthymic affect Lymphatic: no cervical or axillary lymphadenopathy : deferred Principal Diagnosis Fall Fecal impaction Left leg deep venous thrombosis Discharge Exam Constitutional + well hydrated; no acute distress Frail elderly woman Eyes PERRL, conjunctivae normal, anicteric sclerae ENMT external ear and nose normal, oropharynx normal Respiratory normal respiratory effort, lungs clear to auscultation Cardiovascular Rate/Rhythm: regular rate and regular rhythm S1 S2 Gastrointestinal (Abdomen) normal bowel sounds, soft, nontender, no hepatosplenomegaly Musculoskeletal No pedal edema Neurologic PERRL, EOMI, accommodation nl, no face palsy, no dysarthria Alert. Oriented to person only Significant dementia. Occasionally follows commands Psychiatric Orientation: alert and oriented to person; + not oriented to place and + not oriented to time Discharge Data Allergies Allergy/AdvReac Type Severity Reaction Status Date / Time pollen extracts Allergy Unknown Unverified 02/20/21 14:14 Sulfa (Sulfonamide Allergy Unknown Unverified 02/20/21 14:14 Antibiotics) wheat Allergy Unknown Unverified 02/20/21 14:14 Consultations 02/20/21 17:31 ED Decision to Admit Stat Ordered Studies 02/20/21 13:36 CT abd pelvis wo con Stat Cardiomegaly is noted. This exam is compromised given the lack of intravenous contrast. No pneumatosis, free air or portal venous gas is present. Unenhanced images of the liver, spleen, adrenal glands, kidneys and pancreas are unremarkable with exception of several small bilateral renal calculi. There is no ureteral calculi. No hydronephrosis. A large amount of stool within the rectum is noted. There is a moderate amount of stool within the colon. There is no evidence for a bowel obstruction. No pelvic hematoma is present. There are healed intertrochanteric fractures of both femurs status post internal fixation. Internal fixation hardware is partially imaged. No acute fracture within the pelvis or hips is identified. Note is made of T10 L1, L2, L3 and S1 L4 compression fractures. These are unchanged and CT of February 06, 2021. Vertebral body height loss is most pronounced at the L3 level with there is associated mild retropulsion. No new fractures are identified since that exam. Old right pubic bone fracture is present. IMPRESSION: 1. No acute traumatic findings. No change since CT of February 14, 2021. 2. Large amount of stool within the rectum and moderate amount stool within the colon. No bowel obstruction. 3. Bilateral nephrolithiasis. 4. Lower thoracic, lumbar and sacral compression fractures which are unchanged since CT of February 14, 2021. These are age-indeterminate but probably subacute to chronic. No new fractures since prior CT CT head/brain wo con Stat No acute intracranial hemorrhage, midline shift or mass effect is present. Moderate atrophy is noted. The ventricular system is unremarkable. The basal cisterns are patent. No extra-axial collections are present. There are no findings to suggest acute dural sinus thrombosis or acute territorial infarct. No significant calvarial abnormalities are present. Secretions within the left sphenoid sinus are noted. IMPRESSION: 1. No acute intracranial findings. 2. No calvarial fracture. 02/21/21 15:30 US venous doppler LE BI Urgent Right lower extremity: There is no sonographic evidence of deep venous thrombosis in the right lower extremity. The common femoral, superficial femoral, and popliteal veins are patent and normally compressible. The greater saphenous vein and the profunda femoris vein at the junction with the common femoral vein are clear. The visualized calf veins are patent. Left lower extremity: There is deep venous thrombosis identified in the left calf within the posterior tibial and peroneal veins. There may also be deep venous thrombosis within the popliteal vein. The common femoral and superficial femoral veins are patent and normally compressible. The greater saphenous vein and the profunda femoris vein at the junction with the common femoral vein are clear. IMPRESSION: 1. Left lower extremity deep venous thrombosis as above, greatest in the calf. 2. There is no sonographic evidence of right lower extremity deep venous thrombosis. Hospital Course (1) Fecal impaction in rectum: (2) Constipation: (3) Fall: (4) Ambulatory dysfunction: (5) Dementia: (6) Compression deformity of vertebra: (7) Left leg DVT: 71-year-old female with dementia who resides at personal care facility presenting with fall. She does not appear to have any acute trauma secondary to fall. Patient not in any painful distress Compression fractures noted on CT T10 L1, L2, L3 and L4 and S1 compression fractures. These are unchanged and CT of February 06, 2021. Vertebral body height loss is most pronounced at the L3 level with there is associated mild retropulsion. No new fractures are identified since that exam Continue bowel regimen Has been having bowel movement Had Leukocytosis on admission, trended down Chest x-ray reports mild right basilar which could be atelectasis. No hypoxia. Procalcitonin is normal Low suspicion for pneumonia. No antibiotics Tolerating diet well. Aspiration precautions Dopplers showed left leg DVT. Currently on Eliquis p.o. Can do for 3months Was evaluated by PT/OT and SNF recommended Total Time Total Time Spent Total Time Spent (In Minutes): 65 Total Time Includes: Examination of the Patient, Discharge Planning and Medication Reconciliation Discharge Plan Discharge Items Patient Disposition: Transfer [facility] Reason For Visit: Fall Discharge Diagnosis: Fall Fecal impaction Left leg deep venous thrombosis Activity: Resume your previous activity Non-emergency contact: Primary Care Provider Call non-emergency contact if: you have any medication questions Follow-up/Referrals: Liliam [Primary Care Provider] - Diet: Regular Diet Comment: Minced and moist Addtl Attending Provider Instructions: Mrs. Gonzalez. You were brought to the hospital after an unwitnessed fall. You were evaluated extensively and found to have fecal impaction as well as left leg blood clots. You were started on bowel regimen and you have been having regular bowel movement. You were also started on blood thinners. Left leg blood clot. Please continue the blood thinner Eliquis for at least 3 to 6 months Please follow-up with your primary doctors. It was a pleasure taking care of you Pending Studies at Discharge: No Stand-Alone Forms: My [facility] Skilled Items Patient informed of condition?: Yes DNR: No Discharge Level of Care: Skilled Communicable Disease: No Discharge Prognosis: Stable Lines: None Urinary Catheter: No Medications and DC Order Prescriptions: New Eliquis 5 mg Tablet See Rx Instructions .ROUTE .COMPLEX Qty: 60 RF: 0 sennosides-docusate sodium [Senokot-S] 8.6-50 mg Tablet 2 tab PO BID Qty: 60 RF: 0 Continued polyethylene glycol 3350 [Miralax] 17 gram Powder In Packet 17 g PO DAILY PRN (Reason: constipation) Qty: 30 RF: 0 rivastigmine 9.5 mg/24 hour patch 24 hour 1 patch transdermal DAILY RF: 0 acetaminophen 325 mg Tablet 325 mg PO QID PRN (Reason: Pain) RF: 0 calcium carbonate-vitamin D3 600 mg(1,500mg) -200 unit Tablet 2 tab PO DAILY RF: 0 docusate sodium 100 mg Capsule 100 mg PO BID RF: 0 B-complex with vitamin C Tablet 1 tab PO DAILY RF: 0 multivitamin [Daily-Zen] Tablet 1 tab PO DAILY RF: 0 Discharge Orders: Discharge Order (Routine); Ordered 02/27/21 Ordered By: Katharine Perez Admission Data Admit Date/Time: 02/22/21 13:10 Attending Provider: Katharine Perez I. Admit Provider: Ladan Lieberman Primary Care Provider: Jose Ricketts Providers: Ladan Lieberman ; [facility] ; Rommel Poe [facility] Other Interventions: Discharge Summary Assessment (RN) Last Done: 02/27/21 15:23
== END 2021-02-27 17:06 | DRG 92 ==
LOC: 2N 12:48 → ED 12:48 → SUATTDRO 17:32 → 2N 22:50 → 3W 02-22 21:35